=== PATIENT | female | born 1945 | race Caucasian/White ===

== ENCOUNTER 2016-04-19 20:53 | Inpatient (IN) | payer OTHER ==
[~2016-04-19] VITALS: Ht 162.6 cm; Wt 89.7 kg
[~2016-04-19 20:53] MED LIST: ACID CONTROL150 MG PO; ADULT LOW DOSE81 M1 PO; ADVAIR 100-501 EACH IH; ADVAIR 250/501 DISK IH; ALBUTEROL17 GM; ALBUTEROL17 GM IH; ALLOPURINOL100 MG PO; ASPIR 8181 M1 PO; ASPIRIN E.C.81 M1 PO; ASPIRIN EC325 MG PO; AVELOX400 MG PO; Advair 250/50 Diskus IH; Advair HFA 115/21 IH; Advair HFA 45/21 IH; Albuterol IH; BACTRIM,SEPT1 TABLET PO; BETHANECHOL CHL25 MG PO; CALCITRIOL0.25 MC1 PO; CALCITRIOL0.25 MCG PO; CALCITRIOL0.5 MCG PO; CALMOSEPTINE O120 GM TP; CELEXA20 MG PO; CELEXA40 MG PO; COLCHICINE,COL0.6 MG PO; COLCRYS0.6 MG PO; COMBIVENT INH14.7 GM IH; CRANBERRY500 M2 PO; CYCLOBENZAPRINE10 M1 PO; Ceftin PO; DIABETA,MICRON2.5 MG PO; DITROPAN XL5 MG PO; DITROPAN5 MG PO; DOXEPIN HCL10 MG PO; DOXEPIN HCL25 MG PO; DUONEB3 ML IH; Diabeta,Micronase PO; Ditropan PO; FLOMAX0.4 MG PO; FUROSEMIDE40 MG PO; Flexeril PO; GABAPENTIN100 MG PO; GENTAK3.5 GM BOTH EYES; GENTAMICIN SULFA5 ML BOTH EYES; GLIPIZIDE5 MG PO; GLUCOSE BITS1 GM PO; GLUCOSE PO; GLUCOSE TABLETS PO; GLUCOSE1 EACH PO; GLUCOTROL5 MG PO; GLYBURIDE2.5 MG PO; Glucotrol PO; HYDROCODON-ACE1 EAC5 PO; HYDROCODON-ACE1 EAC7 PO; HYDROCODONE-AP1 EAC8 PO; IRON325 MG PO; LASIX20 MG PO; LEVOTHROID,S0.075 MG PO; LEVOTHYROXINE75 MCG PO; LEXAPRO10 MG PO; LEXAPRO20 MG PO; LIDODERM 5% P1 PATCH PO; LIDODERM 5% P1 PATCH TD; LIDODERM700 MG TP; Lasix PO; Levothroid,Synthroid PO; Lovenox SC; MAG-AL PLUS SUS30 ML PO; METAMUCIL1 EACH PO; METHENAMINE MAND1 GM PO; NEURONTIN100 MG PO; NEXIUM20 MG PO; NEXIUM40 MG PO; NUVIGIL150 MG PO; NYSTATIN100000 UNI RIGHT NARE; OXYBUTYNIN CHLOR5 MG PO; PERCOCET 5/31 TABLET PO; PRAVACHOL80 MG PO; PRAVASTATIN SOD80 MG PO; PRILOSEC20 MG PO; Pepcid PO; Prilosec PO; Proventil,Ventolin H IH; Rocaltrol PO; SALINE NASAL SP45 ML BOTH NARES; SEROQUEL12.5 MG PO; SEROQUEL50 MG PO; SIMVASTATIN40 MG PO; SINEQUAN10 MG PO; SINEQUAN100 MG PO; SINEQUAN25 MG PO; TIROSINT75 MCG PO; TRAMADOL; TRAMADOL HCL50 MG PO; TYLENOL REGULA325 MG PO; ULTRAM50 MG PO; VENTOLIN HFA18 GM IH; VICODIN,LORT1 TABLET PO; VITAMIN D1000 INTUN PO; VITAMIN D31000 UNIT PO; VITAMIN D5000 INTUN PO; Vicodin,Lortab 5/500 PO; ZANTAC150 MG PO; ZEMPLAR1 MCG PO; ZESTRIL,PRINIVI10 M1 PO; ZYLOPRIM100 MG PO; Zyloprim PO; [UNRECOGNIZED DRUG - OTHER] PO; predniSONE PO
[2016-04-19 21:37] LABS: HEMATOCRIT 28.8 % (36.0-46.0); MCH 31.5 PG (29.0-34.0); MCHC 31.3 G/DL (30.0-36.0); MCV 100.7 FL (83-99); MEAN PLAT.VOLUME 9.8 uM^3 (9.5-12.4); PLATELET COUNT 183 K/uL (156-360); RBC DIS.WIDTH-CV 15.6 % (11.8-14.6); RBC DIS.WIDTH-SD 52.2 % (39-53); RED BLOOD COUNT 2.86 M/uL (3.80-5.20); WHITE BLOOD COUNT 10.7 K/uL (4.1-10.2)
[2016-04-19 21:44] LABS: CHLORIDE 110 mEq/L (99-109); POTASSIUM 4.6 mEq/L (3.7-5.4); SODIUM 141 mEq/L (136-147)
[2016-04-19 21:46] LABS: GLUCOSE 156 mg/dL (70-99)
[2016-04-19 21:48] LABS: ANION GAP 11 MEQ/L (2-14)
[2016-04-19 21:50] LABS: GFR ESTIMATE (CALCULATED) 8 mL/min/
[2016-04-19 21:51] LABS: UREA NITROGEN (BUN) 69 mg/dL (9-23)
[2016-04-19 21:58] LABS: TROP-I INTERPRETATION NEGATIVE; TROPONIN-I 0.02 ng/mL (0.0-0.30)
[2016-04-19 23:18] LABS: D-DIMER ELISA 0.67 mg/L FEU (< 0.57); INTER. NORMALIZED RATIO 1.1; PTT 26.1 (25-32)
[2016-04-20 00:11] LABS: INFLUENZA A VIRAL ANTIGEN NEGATIVE; INFLUENZA B VIRAL ANTIGEN NEGATIVE
[2016-04-20] MEDS ORDERED: GLIPIZIDE5 MG PO (00:55)
[2016-04-20] MEDS ORDERED: CALMOSEPTINE O120 GM TP (00:59)
[2016-04-20] MEDS ORDERED: FUROSEMIDE20 MG PO (01:05)
[2016-04-20] MEDS ORDERED: DUONEB 2.5-0.5 M3 ML AEROSOL (01:06)
[2016-04-20] MEDS ORDERED: TRADJENTA5 MG PO (01:06)
[2016-04-20] MEDS ORDERED: SENNA PLUS TAB1 EACH PO (01:07)
[2016-04-20] MEDS ORDERED: TUSSIN DM LIQU118 ML PO (01:08)
[2016-04-20 04:07] LABS: TROP-I INTERPRETATION NEGATIVE; TROPONIN-I 0.02 ng/mL (0.0-0.30)
[2016-04-20 09:52] LABS: POINT-OF-CARE METER ID UU13113702
[2016-04-20 10:21] LABS: TROP-I INTERPRETATION NEGATIVE; TROPONIN-I < 0.01 ng/mL (0.0-0.30)
[2016-04-20 14:20] VITALS: BP 80/60
[2016-04-20 15:48] LABS: IRON 44 MCG/DL (35-150)
[2016-04-20 16:32] LABS: POINT-OF-CARE METER ID UU13113698
[2016-04-20 19:20] VITALS: BP 105/57
[2016-04-20 20:53] LABS: POINT-OF-CARE METER ID UU14174216
[2016-04-21 00:20] VITALS: BP 97/52
[2016-04-21 04:02] VITALS: BP 96/50
[2016-04-21 06:58] LABS: HEMATOCRIT 25.2 % (36.0-46.0); MCH 31.7 PG (29.0-34.0); MCV 102.4 FL (83-99); MEAN PLAT.VOLUME 10.4 uM^3 (9.5-12.4); PLATELET COUNT 149 K/uL (156-360); RBC DIS.WIDTH-CV 16.3 % (11.8-14.6); RBC DIS.WIDTH-SD 58.8 % (39-53); RED BLOOD COUNT 2.46 M/uL (3.80-5.20); WHITE BLOOD COUNT 8.7 K/uL (4.1-10.2)
[2016-04-21 07:32] LABS: ANION GAP 10 MEQ/L (2-14); CHLORIDE 110 MEQ/L (99-109); GFR ESTIMATE (CALCULATED) 9 mL/min/; POTASSIUM 5.1 MEQ/L (3.7-5.4); SAMPLE HEMOLYSIS CHECK 0; SAMPLE ICTERIC CHECK 0; SAMPLE LIPEMIA CHECK 0; SODIUM 141 MEQ/L (136-147); UREA NITROGEN (BUN) 67 mg/dL (9-23)
[2016-04-21 07:40] VITALS: BP 109/56
[2016-04-21 07:40] LABS: GLUCOSE 79 mg/dL (70-99)
[2016-04-21 08:26] LABS: INTACT PARATHYROID HORMONE 94 pg/mL (10-69)
[2016-04-21 11:07] LABS: POINT-OF-CARE METER ID UU13113698
[2016-04-21 12:10] VITALS: BP 95/55
[2016-04-21 15:31] VITALS: BP 98/55
[2016-04-21 16:17] LABS: POINT-OF-CARE METER ID UU13113698
[2016-04-21 19:46] LABS: INFLUENZA A VIRAL ANTIGEN NEGATIVE; INFLUENZA B VIRAL ANTIGEN NEGATIVE
[2016-04-21 21:11] VITALS: BP 90/50
[2016-04-21 21:32] LABS: POINT-OF-CARE METER ID UU14174216
[2016-04-22] VITALS (8 sets, daily range): BP systolic 75–112; BP diastolic 48–65
[2016-04-22 05:08] LABS: HEMATOCRIT 25.3 % (36.0-46.0); MCH 30.9 PG (29.0-34.0); MCHC 30.4 G/DL (30.0-36.0); MCV 101.6 FL (83-99); MEAN PLAT.VOLUME 10.2 uM^3 (9.5-12.4); PLATELET COUNT 143 K/uL (156-360); RBC DIS.WIDTH-CV 16.2 % (11.8-14.6); RBC DIS.WIDTH-SD 58.6 % (39-53); RED BLOOD COUNT 2.49 M/uL (3.80-5.20); WHITE BLOOD COUNT 7.8 K/uL (4.1-10.2)
[2016-04-22 05:45] LABS: ANION GAP 11 MEQ/L (2-14); CHLORIDE 113 MEQ/L (99-109); GFR ESTIMATE (CALCULATED) 9 mL/min/; POTASSIUM 4.8 MEQ/L (3.7-5.4); SAMPLE HEMOLYSIS CHECK 0; SAMPLE ICTERIC CHECK 0; SAMPLE LIPEMIA CHECK 0; SODIUM 143 MEQ/L (136-147); UREA NITROGEN (BUN) 68 mg/dL (9-23)
[2016-04-22 05:46] LABS: GLUCOSE 113 mg/dL (70-99)
[2016-04-22 06:07] LABS: FERRITIN 59 NG/ML (10-291)
[2016-04-22 06:24] LABS: ABS NEUTROPHIL COUNT 4.98; ANISOCYTOSIS 2+; EOSINOPHIL ABS CT 0.23; HYPOCHROMASIA 1+; MACROCYTES 2+; MICROCYTOSIS 1+; PLAT.SUFFICIENCY ADEQUATE; POLYCHROMASIA RARE; TEAR DROP CELLS 1+
[2016-04-22 06:38] LABS: DELETE MACHINE DIFF? YES
[2016-04-22 08:22] LABS: POINT-OF-CARE METER ID UU13113698; POINT-OF-CARE USER ID ENVKC36
[2016-04-22 12:31] LABS: POINT-OF-CARE METER ID UU13113781; POINT-OF-CARE USER ID ENVKC36
[2016-04-23 00:35] VITALS: BP 98/50
[2016-04-23 04:24] LABS: HEMATOCRIT 26.4 % (36.0-46.0); MCH 31.1 PG (29.0-34.0); MCHC 30.3 G/DL (30.0-36.0); MCV 102.7 FL (83-99); MEAN PLAT.VOLUME 9.8 uM^3 (9.5-12.4); PLATELET COUNT 138 K/uL (156-360); RBC DIS.WIDTH-CV 16.3 % (11.8-14.6); RBC DIS.WIDTH-SD 57.4 % (39-53); RED BLOOD COUNT 2.57 M/uL (3.80-5.20); WHITE BLOOD COUNT 8.1 K/uL (4.1-10.2)
[2016-04-23 04:27] LABS: EOSINOPHIL (%) 4.8 % (0-5); EOSINOPHIL COUNT 0.4 K/uL (0-0.3); IMMATURE GRANULOCYTE (%) 1.9 % (0.0-0.7); IMMATURE GRANULOCYTE COUNT 1.5 K/uL; LYMPHOCYTE COUNT 1.3 K/uL (1.0-2.8); MONOCYTE (%) 7.3 % (3-12); MONOCYTE COUNT 0.6 K/uL (0-0.8); NEUTROPHIL COUNT 5.7 K/uL (1.8-6.4)
[2016-04-23 04:31] LABS: CHLORIDE 114 mEq/L (99-109); POTASSIUM 5.2 mEq/L (3.7-5.4); SODIUM 144 mEq/L (136-147)
[2016-04-23 04:33] LABS: GLUCOSE 144 mg/dL (70-99)
[2016-04-23 04:35] LABS: ANION GAP 12 MEQ/L (2-14)
[2016-04-23 04:37] LABS: GFR ESTIMATE (CALCULATED) 8 mL/min/
[2016-04-23 04:38] LABS: UREA NITROGEN (BUN) 71 mg/dL (9-23)
[2016-04-23 05:10] VITALS: BP 82/54
[2016-04-23 13:53] LABS: AHBS INDEX 0.28; ANTI-HEPATITIS B CORE (TOTAL) REACTIVE; HEPATITIS B SURFACE ANTIBODY Nonreactive; HPCA INDEX 0.23
[2016-04-23 14:00] VITALS: BP 87/59
[2016-04-23 14:24] LABS: HBSG INDEX 1308.33
[2016-04-23 15:36] LABS: HBCT INDEX 11.88
[2016-04-23 18:00] VITALS: BP 85/47
[2016-04-23 19:28] VITALS: BP 104/58
[2016-04-24 00:50] VITALS: BP 89/59
[2016-04-24 05:13] VITALS: BP 85/50
[2016-04-24 09:23] LABS: HEMATOCRIT 26.4 % (36.0-46.0); MCH 30.2 PG (29.0-34.0); MCHC 29.5 G/DL (30.0-36.0); MCV 102.3 FL (83-99); MEAN PLAT.VOLUME 10.3 uM^3 (9.5-12.4); PLATELET COUNT 134 K/uL (156-360); RBC DIS.WIDTH-CV 16.7 % (11.8-14.6); RBC DIS.WIDTH-SD 62.6 % (39-53); RED BLOOD COUNT 2.58 M/uL (3.80-5.20); WHITE BLOOD COUNT 6.5 K/uL (4.1-10.2)
[2016-04-24 09:47] LABS: ANION GAP 7 MEQ/L (2-14); CHLORIDE 110 MEQ/L (99-109); EOSINOPHIL (%) 5.1 % (0-5); EOSINOPHIL COUNT 0.3 K/uL (0-0.3); GFR ESTIMATE (CALCULATED) 12 mL/min/; GLUCOSE 189 mg/dL (70-99); IMMATURE GRANULOCYTE (%) 1.6 % (0.0-0.7); IMMATURE GRANULOCYTE COUNT 0.1 K/uL; MONOCYTE (%) 10.9 % (3-12); MONOCYTE COUNT 0.7 K/uL (0-0.8); NEUTROPHIL (%) 66.2 % (45-76); NEUTROPHIL COUNT 4.3 K/uL (1.8-6.4); POTASSIUM 4.2 MEQ/L (3.7-5.4); SAMPLE HEMOLYSIS CHECK 0; SAMPLE ICTERIC CHECK 0; SAMPLE LIPEMIA CHECK 0; SODIUM 141 MEQ/L (136-147); UREA NITROGEN (BUN) 50 mg/dL (9-23)
[2016-04-24 13:00] VITALS: BP 106/54
[2016-04-24 14:01] LABS: POINT-OF-CARE METER ID UU13113781
[2016-04-24 14:01] LABS: ANTI-HEPATITIS B CORE (IGM) Nonreactive; HBC IgM INDEX 0.48
[2016-04-24 16:09] LABS: ADD MIUA? YES; BILIRUBIN NEGATIVE; BLOOD MODERATE; COLOR YELLOW ((YELLOW)); GLUCOSE (STRIP) NEGATIVE; KETONES NEGATIVE; LEUKOCYTES LARGE; NITRITE NEGATIVE; PROTEIN (STRIP) 100; SPECIFIC GRAVITY 1.006 (1.000-1.030); UROBILINOGEN 0.2 MG/DL (0.2-1.0)
[2016-04-24 16:37] LABS: UCUL ADDED? YES; WHITE BLOOD CELLS TNTC /HPF (0-5)
[2016-04-24 16:49] LABS: D-DIMER ELISA 1.03 mg/L FEU (< 0.57); FIBRINOGEN 367 MG/DL (160-450); INTER. NORMALIZED RATIO 1.1; PROTHROMBIN TIME 11.4 (9.2-11.2); PTT 30.9 (25-32)
[2016-04-24 17:32] LABS: ALKALINE PHOSPHATASE 95 IU/L (3-129); DIRECT BILIRUBIN 0.1 mg/dL (0.0-0.3); TOTAL BILIRUBIN 0.4 MG/DL (0.0-1.0)
[2016-04-24 17:57] VITALS: BP 126/56
[2016-04-24 19:39] VITALS: BP 111/56
[2016-04-24 21:11] LABS: POINT-OF-CARE METER ID UU13113781
[2016-04-24 23:43] VITALS: BP 90/54
[2016-04-25] VITALS (8 sets, daily range): BP systolic 95–130; BP diastolic 52–63
[2016-04-25 08:35] LABS: HEMATOCRIT 26.3 % (36.0-46.0); MCH 30.8 PG (29.0-34.0); MCHC 29.7 G/DL (30.0-36.0); MEAN PLAT.VOLUME 9.9 uM^3 (9.5-12.4); PLATELET COUNT 120 K/uL (156-360); RBC DIS.WIDTH-CV 17.1 % (11.8-14.6); RBC DIS.WIDTH-SD 65.3 % (39-53); RED BLOOD COUNT 2.53 M/uL (3.80-5.20); WHITE BLOOD COUNT 6.4 K/uL (4.1-10.2)
[2016-04-25 08:47] LABS: EOSINOPHIL (%) 5.3 % (0-5); EOSINOPHIL COUNT 0.3 K/uL (0-0.3); IMMATURE GRANULOCYTE (%) 1.7 % (0.0-0.7); IMMATURE GRANULOCYTE COUNT 0.1 K/uL; MONOCYTE (%) 9.6 % (3-12); MONOCYTE COUNT 0.6 K/uL (0-0.8); NEUTROPHIL COUNT 4.3 K/uL (1.8-6.4)
[2016-04-25 08:52] LABS: ANION GAP 6 MEQ/L (2-14); CHLORIDE 110 MEQ/L (99-109); GFR ESTIMATE (CALCULATED) 17 mL/min/; GLUCOSE 262 mg/dL (70-99); POTASSIUM 4.1 MEQ/L (3.7-5.4); SAMPLE HEMOLYSIS CHECK 0; SAMPLE ICTERIC CHECK 0; SAMPLE LIPEMIA CHECK 0; SODIUM 142 MEQ/L (136-147); UREA NITROGEN (BUN) 35 mg/dL (9-23)
[2016-04-25 21:24] LABS: POINT-OF-CARE METER ID UU13113698
[2016-04-26 04:48] LABS: HEMATOCRIT 28.1 % (36.0-46.0); MCH 31.2 PG (29.0-34.0); MCHC 29.5 G/DL (30.0-36.0); MCV 105.6 FL (83-99); MEAN PLAT.VOLUME 10.4 uM^3 (9.5-12.4); PLATELET COUNT 121 K/uL (156-360); RBC DIS.WIDTH-CV 16.2 % (11.8-14.6); RBC DIS.WIDTH-SD 60.8 % (39-53); RED BLOOD COUNT 2.66 M/uL (3.80-5.20); WHITE BLOOD COUNT 7.1 K/uL (4.1-10.2)
[2016-04-26 04:54] LABS: EOSINOPHIL (%) 6.4 % (0-5); EOSINOPHIL COUNT 0.5 K/uL (0-0.3); IMMATURE GRANULOCYTE (%) 1.7 % (0.0-0.7); IMMATURE GRANULOCYTE COUNT 1.2 K/uL; LYMPHOCYTE COUNT 1.2 K/uL (1.0-2.8); MONOCYTE (%) 7.5 % (3-12); MONOCYTE COUNT 0.5 K/uL (0-0.8); NEUTROPHIL (%) 67.1 % (45-76); NEUTROPHIL COUNT 4.7 K/uL (1.8-6.4)
[2016-04-26 04:59] LABS: CHLORIDE 109 mEq/L (99-109); POTASSIUM 4.1 mEq/L (3.7-5.4); SODIUM 142 mEq/L (136-147)
[2016-04-26 05:01] LABS: GLUCOSE 140 mg/dL (70-99)
[2016-04-26 05:03] LABS: ANION GAP 7 MEQ/L (2-14)
[2016-04-26 05:05] LABS: GFR ESTIMATE (CALCULATED) 20 mL/min/
[2016-04-26 05:06] LABS: UREA NITROGEN (BUN) 22 mg/dL (9-23)
[2016-04-26 05:24] VITALS: BP 99/69
[2016-04-26 07:29] VITALS: BP 102/64
[2016-04-26 12:39] VITALS: BP 94/51
[2016-04-26 15:32] VITALS: BP 90/51
[2016-04-26 20:13] LABS: HBV DNA IU/mL >170.0E6 IU/mL (<20)
[2016-04-26 20:18] VITALS: BP 110/58
[2016-04-27] VITALS (7 sets, daily range): BP systolic 90–106; BP diastolic 52–61
[2016-04-27 05:54] LABS: HEMATOCRIT 28.1 % (36.0-46.0); MCH 29.9 PG (29.0-34.0); MCHC 28.8 G/DL (30.0-36.0); MCV 103.7 FL (83-99); MEAN PLAT.VOLUME 10.9 uM^3 (9.5-12.4); PLATELET COUNT 145 K/uL (156-360); RBC DIS.WIDTH-CV 16.2 % (11.8-14.6); RBC DIS.WIDTH-SD 61.7 % (39-53); RED BLOOD COUNT 2.71 M/uL (3.80-5.20); WHITE BLOOD COUNT 6.6 K/uL (4.1-10.2)
[2016-04-27 06:12] LABS: ANION GAP 6 MEQ/L (2-14); CHLORIDE 112 MEQ/L (99-109); GFR ESTIMATE (CALCULATED) 15 mL/min/; GLUCOSE 147 mg/dL (70-99); POTASSIUM 4.2 MEQ/L (3.7-5.4); SAMPLE HEMOLYSIS CHECK 0; SAMPLE ICTERIC CHECK 0; SAMPLE LIPEMIA CHECK 0; SODIUM 143 MEQ/L (136-147); UREA NITROGEN (BUN) 29 mg/dL (9-23)
[2016-04-27 06:16] LABS: ANION GAP 7 MEQ/L (2-14); CHLORIDE 110 MEQ/L (99-109); GLUCOSE 146 mg/dL (70-99); POTASSIUM 4.2 MEQ/L (3.7-5.4); SAMPLE HEMOLYSIS CHECK 0; SAMPLE ICTERIC CHECK 0; SAMPLE LIPEMIA CHECK 0; SODIUM 143 MEQ/L (136-147); UREA NITROGEN (BUN) 30 mg/dL (9-23)
[2016-04-27 06:17] LABS: GFR ESTIMATE (CALCULATED) 15 mL/min/
[2016-04-27 06:28] LABS: EOSINOPHIL (%) 5.5 % (0-5); EOSINOPHIL COUNT 0.4 K/uL (0-0.3); IMMATURE GRANULOCYTE COUNT 0.1 K/uL; LYMPHOCYTE COUNT 1.1 K/uL (1.0-2.8); MONOCYTE (%) 8.8 % (3-12); MONOCYTE COUNT 0.6 K/uL (0-0.8); NEUTROPHIL (%) 67.3 % (45-76); NEUTROPHIL COUNT 4.4 K/uL (1.8-6.4)
[2016-04-27 07:40] LABS: POINT-OF-CARE METER ID UU14174216
[2016-04-27 11:16] LABS: POINT-OF-CARE METER ID UU14174216
[2016-04-27 16:28] LABS: POINT-OF-CARE METER ID UU14174216
[2016-04-27 17:52] LABS: POINT-OF-CARE METER ID UU14174216
[2016-04-27 21:01] LABS: POINT-OF-CARE METER ID UU14174216
[2016-04-28 03:10] VITALS: BP 103/52
[2016-04-28 05:35] LABS: HEMATOCRIT 29.5 % (36.0-46.0); MCH 31.4 PG (29.0-34.0); MCHC 29.5 G/DL (30.0-36.0); MCV 106.5 FL (83-99); MEAN PLAT.VOLUME 10.7 uM^3 (9.5-12.4); PLATELET COUNT 139 K/uL (156-360); RBC DIS.WIDTH-CV 16.3 % (11.8-14.6); RBC DIS.WIDTH-SD 62.5 % (39-53); RED BLOOD COUNT 2.77 M/uL (3.80-5.20); WHITE BLOOD COUNT 7.8 K/uL (4.1-10.2)
[2016-04-28 05:58] LABS: ANION GAP 8 MEQ/L (2-14); CHLORIDE 109 MEQ/L (99-109); GFR ESTIMATE (CALCULATED) 13 mL/min/; GLUCOSE 134 mg/dL (70-99); POTASSIUM 4.6 MEQ/L (3.7-5.4); SAMPLE HEMOLYSIS CHECK 0; SAMPLE ICTERIC CHECK 0; SAMPLE LIPEMIA CHECK 0; SODIUM 142 MEQ/L (136-147); UREA NITROGEN (BUN) 36 mg/dL (9-23)
[2016-04-28 06:26] LABS: EOSINOPHIL (%) 4.8 % (0-5); EOSINOPHIL COUNT 0.4 K/uL (0-0.3); IMMATURE GRANULOCYTE (%) 3.6 % (0.0-0.7); IMMATURE GRANULOCYTE COUNT 0.3 K/uL; LYMPHOCYTE COUNT 1.3 K/uL (1.0-2.8); MONOCYTE (%) 8.5 % (3-12); MONOCYTE COUNT 0.7 K/uL (0-0.8); NEUTROPHIL COUNT 5.1 K/uL (1.8-6.4)
[2016-04-28 07:23] LABS: POINT-OF-CARE METER ID UU13113698
[2016-04-28 07:39] LABS: HEMATOLOGY COMMENT 1 SMEAR COMPATIBLE; PLAT.SUFFICIENCY DECREASED; USER ID TLW
[2016-04-28 07:47] VITALS: BP 108/59
[2016-04-28 10:42] LABS: POINT-OF-CARE METER ID UU14174216
[2016-04-28 10:51] LABS: HBV DNA Copies/mL >8.23 (<1.30)
[2016-04-28 12:09] VITALS: BP 101/55
[2016-04-28] MEDS ORDERED: CEFTIN250 MG PO (14:25)
[2016-04-28] MEDS ORDERED: FUROSEMIDE40 MG PO (14:25)
== END 2016-04-28 16:05 | disposition home or self-care (01) | DRG 683 ==
LOC: EME 20:53 → EDOF 04-20 00:06 → 4EAST 04-20 10:21 → EDOF 04-20 10:21 → 4EAST 04-20 14:37
PROVIDERS: Emergency Medicine; Internal Medicine; Internal Medicine Nephrology; Physician Assistant
PROC: 5A1D60Z (ICD-10-PCS; principal; 2016-04-23)
DX: N17.9 Acute kidney failure, unspecified (principal); B19.10 Unspecified viral hepatitis B without hepatic coma; N39.0 Urinary tract infection, site not specified; I12.0 Hypertensive chronic kidney disease with stage 5 chronic kidney disease or end stage renal disease; I27.2 Other secondary pulmonary hypertension; J11.1 Influenza due to unidentified influenza virus with other respiratory manifestations; F41.9 Anxiety disorder, unspecified; E11.22 Type 2 diabetes mellitus with diabetic chronic kidney disease; F32.9 Major depressive disorder, single episode, unspecified; R32 Unspecified urinary incontinence; E78.5 Hyperlipidemia, unspecified; D63.1 Anemia in chronic kidney disease; D50.9 Iron deficiency anemia, unspecified; K21.9 Gastro-esophageal reflux disease without esophagitis; G89.29 Other chronic pain; J44.9 Chronic obstructive pulmonary disease, unspecified; R07.9 Chest pain, unspecified; E55.9 Vitamin D deficiency, unspecified; M10.9 Gout, unspecified; I77.0 Arteriovenous fistula, acquired; N18.5 Chronic kidney disease, stage 5; E21.3 Hyperparathyroidism, unspecified; I95.9 Hypotension, unspecified; Z88.2 Allergy status to sulfonamides; Z87.891 Personal history of nicotine dependence; Z79.82 Long term (current) use of aspirin
CPT/HCPCS: 71020; 78582; 80048; 80048 91; 80069; 80076; 81003; 82728; 82948; 83540; 83605; 83690; 83880; 83970; 84443; 84466; 84484; 85025; 85027; 85379; 85384; 85610; 85730; 86704; 86705; 86706; 86803; 87077; 87086; 87186; 87340; 87502; 87517 90; 93005; 94640; 94640 76; 94760; 99202; 99281; 99285; A9540; A9567; J0696; J0881; J1644; J1756; J1815; J2270; J2405; J7030; J7050

== ENCOUNTER 2016-06-29 07:51 | Inpatient (IN) | payer OTHER ==
[~2016-06-29] VITALS: Ht 157.5 cm; Wt 84.0 kg
[~2016-06-29 07:51] MED LIST changes: +CEFTIN250 MG PO; +DUONEB 2.5-0.5 M3 ML AEROSOL; +FUROSEMIDE20 MG PO; +SENNA PLUS TAB1 EACH PO; +TRADJENTA5 MG PO; +TUSSIN DM LIQU118 ML PO
[2016-06-29 08:55] LABS: EOSINOPHIL (%) 5.8 % (0-5); EOSINOPHIL COUNT 0.4 K/uL (0-0.3); HEMATOCRIT 32.7 % (36.0-46.0); IMMATURE GRANULOCYTE (%) 1.7 % (0.0-0.7); IMMATURE GRANULOCYTE COUNT 0.1 K/uL; LYMPHOCYTE COUNT 1.4 K/uL (1.0-2.8); MCH 32.5 PG (29.0-34.0); MCHC 30.3 G/DL (30.0-36.0); MCV 107.2 FL (83-99); MONOCYTE (%) 10.2 % (3-12); MONOCYTE COUNT 0.7 K/uL (0-0.8); NEUTROPHIL (%) 61.2 % (45-76); PLATELET COUNT 135 K/uL (156-360); RBC DIS.WIDTH-CV 14.6 % (11.8-14.6); RBC DIS.WIDTH-SD 56.3 % (39-53); RED BLOOD COUNT 3.05 M/uL (3.80-5.20); WHITE BLOOD COUNT 6.6 K/uL (4.1-10.2)
[2016-06-29 09:04] LABS: CHLORIDE 105 mEq/L (99-109); POTASSIUM 3.9 mEq/L (3.7-5.4); SODIUM 142 mEq/L (136-147)
[2016-06-29 09:07] LABS: GLUCOSE 109 mg/dL (70-99)
[2016-06-29 09:08] LABS: ANION GAP 12 MEQ/L (2-14)
[2016-06-29 09:09] LABS: TOTAL BILIRUBIN 0.5 mg/dL (0.0-1.0)
[2016-06-29 09:10] LABS: ALKALINE PHOSPHATASE 104 IU/L (3-129); GFR ESTIMATE (CALCULATED) 11 mL/min/
[2016-06-29 09:11] LABS: UREA NITROGEN (BUN) 32 mg/dL (9-23)
[2016-06-29 09:16] LABS: TROP-I INTERPRETATION NEGATIVE; TROPONIN-I < 0.01 ng/mL (0.0-0.30)
[2016-06-29 09:19] LABS: INTER. NORMALIZED RATIO 1.1; PROTHROMBIN TIME 11.1 (9.2-11.2); PTT 27.8 (25-32)
[2016-06-29 09:55] LABS: ADD MIUA? YES; BILIRUBIN NEGATIVE; BLOOD SMALL; COLOR YELLOW ((YELLOW)); GLUCOSE (STRIP) NEGATIVE; KETONES NEGATIVE; LEUKOCYTES LARGE; NITRITE NEGATIVE; PROTEIN (STRIP) 100; SPECIFIC GRAVITY 1.008 (1.000-1.030); UROBILINOGEN 0.2 MG/DL (0.2-1.0)
[2016-06-29 10:13] LABS: BACTERIA NONE SEEN /HPF; EPITHELIAL CELLS RARE /HPF; MUCUS NONE SEEN /LPF; RED BLOOD CELLS TNTC /HPF (0-5); UCUL ADDED? YES; WHITE BLOOD CELLS TNTC /HPF (0-5); WHITE BLOOD CELLS CLUMP MANY /HPF (0-5)
[2016-06-29] MEDS ORDERED: NUVIGIL250 MG PO (12:31)
[2016-06-29] MEDS ORDERED: FUROSEMIDE40 MG PO (12:34)
[2016-06-29] MEDS ORDERED: SIMVASTATIN20 MG PO (12:39)
[2016-06-29] MEDS ORDERED: MIDODRINE HCL5 MG PO (12:40)
[2016-06-29 14:18] VITALS: BP 88/51
[2016-06-29 14:56] VITALS: BP 88/51
[2016-06-29 16:36] VITALS: BP 90/50; BP 90/58
[2016-06-29 18:55] VITALS: BP 104/53
[2016-06-29 23:04] VITALS: BP 96/51
[2016-06-29 23:45] VITALS: BP 104/60
[2016-06-30 03:09] VITALS: BP 114/62
[2016-06-30 06:51] LABS: HEMATOCRIT 33.8 % (36.0-46.0); MCH 31.7 PG (29.0-34.0); MCHC 29.3 G/DL (30.0-36.0); MCV 108.3 FL (83-99); MEAN PLAT.VOLUME 9.9 uM^3 (9.5-12.4); PLATELET COUNT 135 K/uL (156-360); RBC DIS.WIDTH-CV 14.7 % (11.8-14.6); RBC DIS.WIDTH-SD 58.4 % (39-53); RED BLOOD COUNT 3.12 M/uL (3.80-5.20); WHITE BLOOD COUNT 5.9 K/uL (4.1-10.2)
[2016-06-30 07:00] VITALS: BP 109/60
[2016-06-30 07:17] LABS: ANION GAP 9 MEQ/L (2-14); CHLORIDE 109 MEQ/L (99-109); GFR ESTIMATE (CALCULATED) 11 mL/min/; GLUCOSE 117 mg/dL (70-99); POTASSIUM 4.1 MEQ/L (3.7-5.4); SAMPLE HEMOLYSIS CHECK 0; SAMPLE ICTERIC CHECK 0; SAMPLE LIPEMIA CHECK 0; SODIUM 142 MEQ/L (136-147); UREA NITROGEN (BUN) 35 mg/dL (9-23)
[2016-06-30 11:15] VITALS: BP 93/65
[2016-06-30 18:17] VITALS: BP 86/48
[2016-06-30 20:34] VITALS: BP 117/49
[2016-06-30 21:18] LABS: POINT-OF-CARE METER ID UU14162508
[2016-07-01] VITALS (7 sets, daily range): BP systolic 92–120; BP diastolic 53–76
[2016-07-01 07:01] LABS: HEMATOCRIT 33.1 % (36.0-46.0); MCH 32.1 PG (29.0-34.0); MCHC 29.9 G/DL (30.0-36.0); MCV 107.5 FL (83-99); MEAN PLAT.VOLUME 9.8 uM^3 (9.5-12.4); PLATELET COUNT 123 K/uL (156-360); RBC DIS.WIDTH-CV 14.7 % (11.8-14.6); RBC DIS.WIDTH-SD 57.3 % (39-53); RED BLOOD COUNT 3.08 M/uL (3.80-5.20); WHITE BLOOD COUNT 5.6 K/uL (4.1-10.2)
[2016-07-01 07:12] LABS: Estimated Average Glucose 114 mg/dL (70-123); HEMOGLOBIN A1c (GLYCOHEMOGLOB) 5.6 % HGB (Below 5.7)
[2016-07-01 07:37] LABS: ANION GAP 10 MEQ/L (2-14); CHLORIDE 103 MEQ/L (99-109); GFR ESTIMATE (CALCULATED) 15 mL/min/; GLUCOSE 124 mg/dL (70-99); SAMPLE HEMOLYSIS CHECK 0; SAMPLE ICTERIC CHECK 0; SAMPLE LIPEMIA CHECK 0; SODIUM 142 MEQ/L (136-147); UREA NITROGEN (BUN) 21 mg/dL (9-23)
[2016-07-01 11:37] LABS: POINT-OF-CARE METER ID UU14162508
[2016-07-01 17:10] LABS: POINT-OF-CARE METER ID UU14162508
[2016-07-02 04:05] VITALS: BP 111/62
[2016-07-02 06:09] LABS: BASOPHIL COUNT 0.1 K/uL (0-0.1); EOSINOPHIL (%) 6.9 % (0-5); EOSINOPHIL COUNT 0.4 K/uL (0-0.3); HEMATOCRIT 34.3 % (36.0-46.0); IMMATURE GRANULOCYTE COUNT 0.3 K/uL; INSTRUMENT ABS NEUTROPHIL CT 3.5 K/uL; LYMPHOCYTE COUNT 1.4 K/uL (1.0-2.8); MCH 32.1 PG (29.0-34.0); MCHC 29.4 G/DL (30.0-36.0); MCV 108.9 FL (83-99); MEAN PLAT.VOLUME 9.3 uM^3 (9.5-12.4); MONOCYTE (%) 9.6 % (3-12); MONOCYTE COUNT 0.6 K/uL (0-0.8); NEUTROPHIL (%) 56.5 % (45-76); NEUTROPHIL COUNT 3.5 K/uL (1.8-6.4); PLATELET COUNT 117 K/uL (156-360); RBC DIS.WIDTH-CV 14.6 % (11.8-14.6); RBC DIS.WIDTH-SD 58.9 % (39-53); RED BLOOD COUNT 3.15 M/uL (3.80-5.20); WHITE BLOOD COUNT 6.3 K/uL (4.1-10.2)
[2016-07-02 06:42] LABS: ANION GAP 10 MEQ/L (2-14); CHLORIDE 107 MEQ/L (99-109); GFR ESTIMATE (CALCULATED) 11 mL/min/; GLUCOSE 162 mg/dL (70-99); POTASSIUM 4.3 MEQ/L (3.7-5.4); SAMPLE HEMOLYSIS CHECK 0; SAMPLE ICTERIC CHECK 0; SAMPLE LIPEMIA CHECK 0; SODIUM 142 MEQ/L (136-147); UREA NITROGEN (BUN) 29 mg/dL (9-23)
[2016-07-02 06:55] VITALS: BP 106/57
[2016-07-02 12:06] VITALS: BP 170/80
[2016-07-02 13:04] LABS: POINT-OF-CARE METER ID UU14162508
[2016-07-02 18:14] LABS: POINT-OF-CARE METER ID UU14162508
[2016-07-02 18:42] VITALS: BP 122/56
[2016-07-02 19:32] VITALS: BP 119/58
[2016-07-02 23:27] VITALS: BP 123/62
[2016-07-03] VITALS (9 sets, daily range): BP systolic 72–115; BP diastolic 48–69
[2016-07-03 16:50] LABS: POINT-OF-CARE METER ID UU14162508
[2016-07-04 00:36] VITALS: BP 98/52
[2016-07-04 04:41] VITALS: BP 111/56
[2016-07-04 06:43] LABS: POINT-OF-CARE METER ID UU14162508
[2016-07-04 08:22] LABS: POINT-OF-CARE METER ID UU14162508
[2016-07-04 08:47] LABS: EOSINOPHIL (%) 5.4 % (0-5); EOSINOPHIL COUNT 0.4 K/uL (0-0.3); HEMATOCRIT 31.4 % (36.0-46.0); IMMATURE GRANULOCYTE (%) 3.8 % (0.0-0.7); IMMATURE GRANULOCYTE COUNT 0.3 K/uL; INSTRUMENT ABS NEUTROPHIL CT 4.5 K/uL; LYMPHOCYTE COUNT 1.3 K/uL (1.0-2.8); MCH 32.2 PG (29.0-34.0); MCHC 29.6 G/DL (30.0-36.0); MCV 108.7 FL (83-99); MEAN PLAT.VOLUME 10.7 uM^3 (9.5-12.4); MONOCYTE COUNT 0.6 K/uL (0-0.8); NEUTROPHIL (%) 64.1 % (45-76); NEUTROPHIL COUNT 4.5 K/uL (1.8-6.4); PLATELET COUNT 115 K/uL (156-360); RBC DIS.WIDTH-SD 59.2 % (39-53); RED BLOOD COUNT 2.89 M/uL (3.80-5.20)
[2016-07-04 09:03] LABS: ANION GAP 10 MEQ/L (2-14); CHLORIDE 103 MEQ/L (99-109); GFR ESTIMATE (CALCULATED) 11 mL/min/; GLUCOSE 341 mg/dL (70-99); SAMPLE HEMOLYSIS CHECK 0; SAMPLE ICTERIC CHECK 0; SAMPLE LIPEMIA CHECK 0; SODIUM 138 MEQ/L (136-147); UREA NITROGEN (BUN) 33 mg/dL (9-23)
[2016-07-04 12:25] VITALS: BP 89/50
[2016-07-04 12:52] LABS: POINT-OF-CARE METER ID UU14162508
[2016-07-04 15:00] VITALS: BP 96/55
[2016-07-04 16:06] LABS: POINT-OF-CARE METER ID UU14162508
[2016-07-04 19:15] VITALS: BP 87/51
[2016-07-04 22:53] LABS: POINT-OF-CARE METER ID UU14162508
[2016-07-04 23:49] VITALS: BP 91/52
[2016-07-05 03:57] VITALS: BP 86/47
[2016-07-05 03:59] VITALS: BP 90/53
[2016-07-05 04:00] VITALS: BP 88/50; BP 91/77
[2016-07-05 06:56] LABS: POINT-OF-CARE METER ID UU14162508
[2016-07-05 07:30] VITALS: BP 95/55
[2016-07-05] MEDS ORDERED: GLUCOTROL XL2.5 MG PO (11:20)
[2016-07-05 12:14] VITALS: BP 99/57
[2016-07-05 16:04] VITALS: BP 104/63
[2016-07-05 16:17] LABS: POINT-OF-CARE METER ID UU14162508
== END 2016-07-05 16:51 | disposition home or self-care (01) | DRG 312 ==
LOC: EME 07:51 → EDOF 11:43 → 2EAST 11:43
PROVIDERS: Emergency Medicine; Hospitalist; Internal Medicine; Internal Medicine Nephrology; Nurse Practitioner Family
DX: I95.3 Hypotension of hemodialysis (principal); N30.00 Acute cystitis without hematuria; R55 Syncope and collapse; I12.0 Hypertensive chronic kidney disease with stage 5 chronic kidney disease or end stage renal disease; N18.5 Chronic kidney disease, stage 5; Z99.2 Dependence on renal dialysis; R60.0 Localized edema; F33.0 Major depressive disorder, recurrent, mild; E03.9 Hypothyroidism, unspecified; D63.1 Anemia in chronic kidney disease; K21.9 Gastro-esophageal reflux disease without esophagitis; Z87.891 Personal history of nicotine dependence; E55.9 Vitamin D deficiency, unspecified; I87.2 Venous insufficiency (chronic) (peripheral); B18.1 Chronic viral hepatitis B without delta-agent; R01.1 Cardiac murmur, unspecified; I70.0 Atherosclerosis of aorta; E11.21 Type 2 diabetes mellitus with diabetic nephropathy; N25.81 Secondary hyperparathyroidism of renal origin; M10.9 Gout, unspecified; E66.9 Obesity, unspecified; Z68.33 Body mass index [BMI] 33.0-33.9, adult; E78.5 Hyperlipidemia, unspecified; I27.2 Other secondary pulmonary hypertension; I25.10 Atherosclerotic heart disease of native coronary artery without angina pectoris; R94.31 Abnormal electrocardiogram [ECG] [EKG]; L03.116 Cellulitis of left lower limb
CPT/HCPCS: 71010; 80048; 80053; 81003; 82607; 82948; 83036; 83605; 84484; 85025; 85027; 85610; 85730; 87040; 87086; 93005; 93306; 93971; 94640; 94640 76; 97530 GP; 99281; 99285; J0696; J0881; J1270; J1644; J1756; J1815; J7030; J7050

== ENCOUNTER 2016-07-23 12:50 | Observation (INO) | payer OTHER ==
[~2016-07-23] VITALS: Ht 162.6 cm; Wt 87.0 kg
[~2016-07-23 12:50] MED LIST changes: +GLUCOTROL XL2.5 MG PO; +MIDODRINE HCL5 MG PO; +NUVIGIL250 MG PO; +SIMVASTATIN20 MG PO
[2016-07-23 13:23] LABS: HEMATOCRIT 27.7 % (36.0-46.0); MCH 32.9 PG (29.0-34.0); MCHC 30.3 G/DL (30.0-36.0); MCV 108.6 FL (83-99); MEAN PLAT.VOLUME 9.7 uM^3 (9.5-12.4); PLATELET COUNT 109 K/uL (156-360); RBC DIS.WIDTH-CV 13.9 % (11.8-14.6); RBC DIS.WIDTH-SD 55.5 % (39-53); RED BLOOD COUNT 2.55 M/uL (3.80-5.20)
[2016-07-23 13:26] LABS: WHITE BLOOD COUNT 4.5 K/uL (4.1-10.2)
[2016-07-23 13:36] LABS: CHLORIDE 114 mEq/L (99-109); POTASSIUM 2.5 mEq/L (3.7-5.4); SODIUM 144 mEq/L (136-147)
[2016-07-23 13:38] LABS: GLUCOSE 124 mg/dL (70-99)
[2016-07-23 13:39] LABS: ANION GAP 5 MEQ/L (2-14)
[2016-07-23 13:41] LABS: GFR ESTIMATE (CALCULATED) 36 mL/min/
[2016-07-23 13:42] LABS: UREA NITROGEN (BUN) 10 mg/dL (9-23)
[2016-07-23 13:48] LABS: TROP-I INTERPRETATION NEGATIVE; TROPONIN-I < 0.01 ng/mL (0.0-0.30)
[2016-07-23] MEDS ORDERED: SYNTHROID75 MCG PO (16:29)
[2016-07-23] MEDS ORDERED: GLIPIZIDE ER2.5 MG PO (16:29)
[2016-07-23] MEDS ORDERED: CALMOSEPTINE O120 GM TP (16:32)
[2016-07-23] MEDS ORDERED: DUONEB 2.5-0.5 M3 ML AEROSOL (16:34)
[2016-07-23 20:32] LABS: CHLORIDE 106 mEq/L (99-109); SODIUM 140 mEq/L (136-147)
[2016-07-23 20:33] LABS: POTASSIUM 3.7 mEq/L (3.7-5.4)
[2016-07-23 20:34] LABS: GLUCOSE 112 mg/dL (70-99)
[2016-07-23 20:36] LABS: ANION GAP 7 MEQ/L (2-14)
[2016-07-23 20:38] LABS: GFR ESTIMATE (CALCULATED) 19 mL/min/
[2016-07-23 20:39] LABS: UREA NITROGEN (BUN) 14 mg/dL (9-23)
[2016-07-23 22:22] LABS: TROP-I INTERPRETATION NEGATIVE; TROPONIN-I < 0.01 ng/mL (0.0-0.30)
[2016-07-23 23:15] VITALS: BP 98/48
[2016-07-24 04:19] VITALS: BP 91/49
[2016-07-24 05:03] LABS: METH RESISTANT S AUREUS PCR POSITIVE (NEGATIVE)
[2016-07-24 05:13] LABS: PROBE CHECK PASS
[2016-07-24 07:36] VITALS: BP 97/58
[2016-07-24 08:23] LABS: TROP-I INTERPRETATION NEGATIVE; TROPONIN-I < 0.01 ng/mL (0.0-0.30)
[2016-07-24 12:35] LABS: TROP-I INTERPRETATION NEGATIVE; TROPONIN-I < 0.01 ng/mL (0.0-0.30)
[2016-07-24 16:17] VITALS: BP 76/46
[2016-07-24 16:48] LABS: POINT-OF-CARE METER ID UU13113781
[2016-07-24 17:33] VITALS: BP 84/58
[2016-07-24 19:17] VITALS: BP 80/50
[2016-07-24 23:03] VITALS: BP 94/63
[2016-07-25 04:28] VITALS: BP 101/59
[2016-07-25 07:27] VITALS: BP 92/51
[2016-07-25 11:49] VITALS: BP 127/59
[2016-07-25 13:58] VITALS: BP 97/63
[2016-07-25] MEDS ORDERED: MIDODRINE HCL5 MG PO (15:48)
[2016-07-25 18:23] LABS: HEMATOCRIT 34.2 % (36.0-46.0); MCH 32.9 PG (29.0-34.0); MCHC 30.1 G/DL (30.0-36.0); MCV 109.3 FL (83-99); PLATELET COUNT 134 K/uL (156-360); RBC DIS.WIDTH-SD 56.5 % (39-53); WHITE BLOOD COUNT 5.8 K/uL (4.1-10.2)
[2016-07-25 18:38] LABS: RED BLOOD COUNT 3.13 M/uL (3.80-5.20)
[2016-07-25 18:40] LABS: ANION GAP 10 MEQ/L (2-14); CHLORIDE 106 MEQ/L (99-109); GFR ESTIMATE (CALCULATED) 11 mL/min/; GLUCOSE 135 mg/dL (70-99); POTASSIUM 3.9 MEQ/L (3.7-5.4); SAMPLE HEMOLYSIS CHECK 0; SAMPLE ICTERIC CHECK 0; SAMPLE LIPEMIA CHECK 0; SODIUM 140 MEQ/L (136-147)
[2016-07-25 18:47] LABS: UREA NITROGEN (BUN) 28 mg/dL (9-23)
[2016-07-25 21:36] LABS: POINT-OF-CARE USER ID ENVKC36
[2016-07-25 22:31] VITALS: BP 100/49
== END 2016-07-26 00:46 | disposition home or self-care (01) ==
LOC: EME 12:50 → EDOF 21:07 → 4EAST 21:07
PROVIDERS: Emergency Medicine; Internal Medicine
PROC: 5A1D00Z (ICD-10-PCS; principal; 2016-07-25)
DX: R07.89 Other chest pain (principal); I95.89 Other hypotension; R00.0 Tachycardia, unspecified; I13.2 Hypertensive heart and chronic kidney disease with heart failure and with stage 5 chronic kidney disease, or end stage renal disease; N18.6 End stage renal disease; I50.9 Heart failure, unspecified; E11.22 Type 2 diabetes mellitus with diabetic chronic kidney disease; E11.21 Type 2 diabetes mellitus with diabetic nephropathy; I27.2 Other secondary pulmonary hypertension; D63.1 Anemia in chronic kidney disease; I35.0 Nonrheumatic aortic (valve) stenosis; E03.9 Hypothyroidism, unspecified; Z99.2 Dependence on renal dialysis; E11.42 Type 2 diabetes mellitus with diabetic polyneuropathy; J44.9 Chronic obstructive pulmonary disease, unspecified; D50.9 Iron deficiency anemia, unspecified; E55.9 Vitamin D deficiency, unspecified; G43.909 Migraine, unspecified, not intractable, without status migrainosus; K21.9 Gastro-esophageal reflux disease without esophagitis; I25.10 Atherosclerotic heart disease of native coronary artery without angina pectoris; J45.909 Unspecified asthma, uncomplicated; F32.9 Major depressive disorder, single episode, unspecified; Z87.891 Personal history of nicotine dependence; F29 Unspecified psychosis not due to a substance or known physiological condition; R49.0 Dysphonia; Z86.19 Personal history of other infectious and parasitic diseases; N25.81 Secondary hyperparathyroidism of renal origin
CPT/HCPCS: 70450; 71020; 71275; 80048; 80048 91; 80069; 82330; 82948; 83605; 84484; 85027; 87040; 87340; 87641; 93005; 94640; 94640 76; 94760; 94799; 99202; 99281; 99285; G0257; G0378; J0881; J1644; J1815; J2543; J3370; J7030; J7040; P9047

== ENCOUNTER 2016-08-04 07:54 | Emergency (ER) | payer OTHER ==
[~2016-08-04] VITALS: Ht 162.6 cm; Wt 86.8 kg
[~2016-08-04 07:54] MED LIST changes: +GLIPIZIDE ER2.5 MG PO; +SYNTHROID75 MCG PO
[2016-08-04 08:52] LABS: HEMATOCRIT 35.9 % (36.0-46.0); MCH 32.9 PG (29.0-34.0); MCHC 30.9 G/DL (30.0-36.0); MCV 106.5 FL (83-99); MEAN PLAT.VOLUME 10.2 uM^3 (9.5-12.4); PLATELET COUNT 125 K/uL (156-360); RBC DIS.WIDTH-CV 13.9 % (11.8-14.6); RBC DIS.WIDTH-SD 54.7 % (39-53); RED BLOOD COUNT 3.37 M/uL (3.80-5.20)
[2016-08-04 08:53] LABS: WHITE BLOOD COUNT 7.9 K/uL (4.1-10.2)
[2016-08-04 09:01] LABS: CHLORIDE 99 mEq/L (99-109); POTASSIUM 4.8 mEq/L (3.7-5.4); SODIUM 140 mEq/L (136-147)
[2016-08-04 09:02] LABS: MAGNESIUM 1.9 mg/dL (1.3-2.7)
[2016-08-04 09:04] LABS: GLUCOSE 250 mg/dL (70-99)
[2016-08-04 09:05] LABS: ANION GAP 14 MEQ/L (2-14)
[2016-08-04 09:06] LABS: TOTAL BILIRUBIN 0.8 mg/dL (0.0-1.0)
[2016-08-04 09:07] LABS: ALKALINE PHOSPHATASE 113 IU/L (3-129); GFR ESTIMATE (CALCULATED) 7 mL/min/
[2016-08-04 09:08] LABS: UREA NITROGEN (BUN) 55 mg/dL (9-23)
[2016-08-04 10:23] LABS: ADD MIUA? YES; BILIRUBIN NEGATIVE; BLOOD NEGATIVE; COLOR YELLOW ((YELLOW)); GLUCOSE (STRIP) 50; KETONES NEGATIVE; LEUKOCYTES MODERATE; NITRITE NEGATIVE; PROTEIN (STRIP) 30; SPECIFIC GRAVITY 1.012 (1.000-1.030); UROBILINOGEN 0.2 MG/DL (0.2-1.0)
[2016-08-04 10:30] LABS: BACTERIA NONE SEEN /HPF; EPITHELIAL CELLS RARE /HPF; HYALINE CASTS 0-5 /LPF; MUCUS TRACE /LPF; RED BLOOD CELLS 0-5 /HPF (0-5); UCUL ADDED? YES; WHITE BLOOD CELLS TNTC /HPF (0-5)
[2016-08-04] MEDS ORDERED: KEFLEX500 MG PO (11:09)
[2016-08-04] MEDS ORDERED: COLACE100 MG PO (11:09)
[2016-08-04] MEDS ORDERED: TRAMADOL HCL50 MG PO (11:39)
[2016-08-04 11:40] VITALS: BP 79/61
== END 2016-08-04 11:53 | disposition home or self-care (01) ==
LOC: EME 07:54
PROVIDERS: Nurse Practitioner Family
DX: N39.0 Urinary tract infection, site not specified (principal); E11.628 Type 2 diabetes mellitus with other skin complications; S90.411A Abrasion, right great toe, initial encounter; K59.00 Constipation, unspecified; M19.071 Primary osteoarthritis, right ankle and foot; Z99.2 Dependence on renal dialysis; E78.5 Hyperlipidemia, unspecified; K21.9 Gastro-esophageal reflux disease without esophagitis; I10 Essential (primary) hypertension; Z88.6 Allergy status to analgesic agent; Z88.2 Allergy status to sulfonamides; Z87.891 Personal history of nicotine dependence
CPT/HCPCS: 71020; 73630; 74020; 80053; 81003; 83735; 83880; 85027; 87086; 93005; 99281; 99285; J7040

== ENCOUNTER 2016-08-06 08:00 | Inpatient (IN) | payer OTHER ==
[2016-08-06] VITALS (11 sets, daily range): BP systolic 77–107; BP diastolic 41–61
[~2016-08-06] VITALS: Ht 162.6 cm; Wt 85.7 kg
[~2016-08-06 08:00] MED LIST changes: +COLACE100 MG PO; +KEFLEX500 MG PO
[2016-08-06 08:30] LABS: EOSINOPHIL (%) 0.8 % (0-5); EOSINOPHIL COUNT 0.1 K/uL (0-0.3); HEMATOCRIT 28.3 % (36.0-46.0); IMMATURE GRANULOCYTE (%) 0.7 % (0.0-0.7); IMMATURE GRANULOCYTE COUNT 0.1 K/uL; INSTRUMENT ABS NEUTROPHIL CT 7.4 K/uL; LYMPHOCYTE COUNT 0.8 K/uL (1.0-2.8); MCH 33.1 PG (29.0-34.0); MCHC 31.1 G/DL (30.0-36.0); MCV 106.4 FL (83-99); MEAN PLAT.VOLUME 10.5 uM^3 (9.5-12.4); MONOCYTE (%) 7.5 % (3-12); MONOCYTE COUNT 0.7 K/uL (0-0.8); NEUTROPHIL (%) 82.1 % (45-76); NEUTROPHIL COUNT 7.4 K/uL (1.8-6.4); PLATELET COUNT 98 K/uL (156-360); RBC DIS.WIDTH-CV 13.7 % (11.8-14.6); RBC DIS.WIDTH-SD 53.8 % (39-53)
[2016-08-06 08:30] LABS: ADD MIUA? YES; BILIRUBIN NEGATIVE; BLOOD SMALL; GLUCOSE (STRIP) NEGATIVE; KETONES NEGATIVE; LEUKOCYTES LARGE; NITRITE NEGATIVE; PROTEIN (STRIP) 100
[2016-08-06 08:31] LABS: RED BLOOD COUNT 2.66 M/uL (3.80-5.20)
[2016-08-06 08:32] LABS: COLOR YELLOW ((YELLOW))
[2016-08-06 08:39] LABS: CHLORIDE 100 mEq/L (99-109); POTASSIUM 4.7 mEq/L (3.7-5.4); SODIUM 135 mEq/L (136-147)
[2016-08-06 08:41] LABS: GLUCOSE 206 mg/dL (70-99)
[2016-08-06 08:42] LABS: ANION GAP 13 MEQ/L (2-14)
[2016-08-06 08:45] LABS: ALKALINE PHOSPHATASE 98 IU/L (3-129); GFR ESTIMATE (CALCULATED) 12 mL/min/; TOTAL BILIRUBIN 1.2 mg/dL (0.0-1.0)
[2016-08-06 08:46] LABS: UREA NITROGEN (BUN) 39 mg/dL (9-23)
[2016-08-06 09:16] LABS: UCUL ADDED? YES; WHITE BLOOD CELLS TNTC /HPF (0-5)
[2016-08-06 09:19] LABS: URINE COMMENT FIELD OBSCURED BY WB
[2016-08-06] MEDS ORDERED: CELEXA40 MG PO (13:28)
[2016-08-06] MEDS ORDERED: VENTOLIN HFA18 GM IH (13:29)
[2016-08-06] MEDS ORDERED: SINEQUAN100 MG PO (13:30)
[2016-08-06] MEDS ORDERED: ALLOPURINOL100 MG PO (13:30)
[2016-08-06] MEDS ORDERED: ZOCOR20 MG PO (13:31)
[2016-08-06] MEDS ORDERED: TYLENOL REGULA325 MG PO (13:32)
[2016-08-06] MEDS ORDERED: LEVO-T75 MCG PO (13:32)
[2016-08-06] MEDS ORDERED: ADVAIR 250/501 DISK IH (13:33)
[2016-08-06] MEDS ORDERED: CALMOSEPTINE O120 GM TP (13:33)
[2016-08-06] MEDS ORDERED: VITAMIN D31000 UNI2 PO (13:34)
[2016-08-06] MEDS ORDERED: SEROQUEL12.5 MG PO (13:34)
[2016-08-06] MEDS ORDERED: NEXIUM20 MG PO (13:35)
[2016-08-06] MEDS ORDERED: TRADJENTA5 MG PO (13:35)
[2016-08-06] MEDS ORDERED: SENNA PLUS TAB1 EACH PO (13:36)
[2016-08-06] MEDS ORDERED: DUONEB 2.5-0.5 M3 ML AEROSOL (13:36)
[2016-08-06] MEDS ORDERED: TUSSIN DM LIQU118 ML PO (13:37)
[2016-08-06] MEDS ORDERED: PROAMATINE5 MG PO (13:37)
[2016-08-06] MEDS ORDERED: TRAMADOL HCL50 MG PO (13:38)
[2016-08-06] MEDS ORDERED: NEURONTIN100 MG PO (13:38)
[2016-08-06] MEDS ORDERED: KEFLEX500 MG PO (13:41)
[2016-08-06 16:52] LABS: METH RESISTANT S AUREUS PCR POSITIVE (NEGATIVE)
[2016-08-06 17:05] LABS: PROBE CHECK PASS
[2016-08-06 21:38] LABS: POINT-OF-CARE METER ID UU13113803
[2016-08-07] VITALS (25 sets, daily range): BP systolic 77–115; BP diastolic 40–76
[2016-08-07 05:34] LABS: EOSINOPHIL (%) 4.1 % (0-5); EOSINOPHIL COUNT 0.3 K/uL (0-0.3); HEMATOCRIT 34.5 % (36.0-46.0); IMMATURE GRANULOCYTE (%) 0.8 % (0.0-0.7); IMMATURE GRANULOCYTE COUNT 0.1 K/uL; INSTRUMENT ABS NEUTROPHIL CT 6.6 K/uL; LYMPHOCYTE COUNT 0.4 K/uL (1.0-2.8); MCHC 30.7 G/DL (30.0-36.0); MCV 107.5 FL (83-99); MEAN PLAT.VOLUME 10.5 uM^3 (9.5-12.4); MONOCYTE (%) 2.4 % (3-12); MONOCYTE COUNT 0.2 K/uL (0-0.8); NEUTROPHIL (%) 87.5 % (45-76); NEUTROPHIL COUNT 6.6 K/uL (1.8-6.4); PLATELET COUNT 126 K/uL (156-360); RBC DIS.WIDTH-CV 13.8 % (11.8-14.6); RBC DIS.WIDTH-SD 54.7 % (39-53); WHITE BLOOD COUNT 7.6 K/uL (4.1-10.2)
[2016-08-07 06:16] LABS: RED BLOOD COUNT 3.21 M/uL (3.80-5.20)
[2016-08-07 06:44] LABS: ALKALINE PHOSPHATASE 122 IU/L (3-129); ANION GAP 11 MEQ/L (2-14); CHLORIDE 105 MEQ/L (99-109); GFR ESTIMATE (CALCULATED) 9 mL/min/; GLUCOSE 203 mg/dL (70-99); POTASSIUM 4.4 MEQ/L (3.7-5.4); SAMPLE HEMOLYSIS CHECK 0; SAMPLE ICTERIC CHECK 0; SAMPLE LIPEMIA CHECK 0; SODIUM 141 MEQ/L (136-147); TOTAL BILIRUBIN 1.3 MG/DL (0.0-1.0); UREA NITROGEN (BUN) 51 mg/dL (9-23)
[2016-08-07 08:45] LABS: POINT-OF-CARE METER ID UU13113803
[2016-08-07 09:47] LABS: AHBS INDEX 0.08; HEPATITIS B SURFACE ANTIBODY Nonreactive
[2016-08-07 11:15] LABS: HBSG INDEX 1121.84
[2016-08-07 13:27] LABS: POINT-OF-CARE METER ID UU14174217
[2016-08-07 17:50] LABS: POINT-OF-CARE METER ID UU13113731; POINT-OF-CARE USER ID 606021424
[2016-08-07 22:05] LABS: POINT-OF-CARE METER ID UU14162636
[2016-08-08] VITALS (19 sets, daily range): BP systolic 77–116; BP diastolic 46–71
[2016-08-08 08:14] LABS: EOSINOPHIL (%) 6.5 % (0-5); EOSINOPHIL COUNT 0.4 K/uL (0-0.3); HEMATOCRIT 35.9 % (36.0-46.0); IMMATURE GRANULOCYTE (%) 1.4 % (0.0-0.7); IMMATURE GRANULOCYTE COUNT 0.1 K/uL; INSTRUMENT ABS NEUTROPHIL CT 3.9 K/uL; LYMPHOCYTE COUNT 1.1 K/uL (1.0-2.8); MCH 32.7 PG (29.0-34.0); MCHC 30.9 G/DL (30.0-36.0); MCV 105.9 FL (83-99); MEAN PLAT.VOLUME 10.4 uM^3 (9.5-12.4); MONOCYTE COUNT 0.4 K/uL (0-0.8); NEUTROPHIL (%) 66.8 % (45-76); NEUTROPHIL COUNT 3.9 K/uL (1.8-6.4); PLATELET COUNT 139 K/uL (156-360); RBC DIS.WIDTH-CV 13.5 % (11.8-14.6); RBC DIS.WIDTH-SD 53.1 % (39-53); RED BLOOD COUNT 3.39 M/uL (3.80-5.20); WHITE BLOOD COUNT 5.9 K/uL (4.1-10.2)
[2016-08-08 17:55] LABS: POINT-OF-CARE METER ID UU14162636
[2016-08-09 07:17] VITALS: BP 116/53
[2016-08-09 08:38] LABS: EOSINOPHIL (%) 6.6 % (0-5); EOSINOPHIL COUNT 0.3 K/uL (0-0.3); HEMATOCRIT 33.6 % (36.0-46.0); IMMATURE GRANULOCYTE (%) 1.6 % (0.0-0.7); IMMATURE GRANULOCYTE COUNT 0.1 K/uL; INSTRUMENT ABS NEUTROPHIL CT 3.2 K/uL; LYMPHOCYTE COUNT 1.1 K/uL (1.0-2.8); MCH 33.4 PG (29.0-34.0); MCHC 31.5 G/DL (30.0-36.0); MEAN PLAT.VOLUME 10.4 uM^3 (9.5-12.4); MONOCYTE (%) 7.4 % (3-12); MONOCYTE COUNT 0.4 K/uL (0-0.8); NEUTROPHIL (%) 63.1 % (45-76); NEUTROPHIL COUNT 3.2 K/uL (1.8-6.4); PLATELET COUNT 154 K/uL (156-360); RBC DIS.WIDTH-CV 13.5 % (11.8-14.6); RBC DIS.WIDTH-SD 53.3 % (39-53); RED BLOOD COUNT 3.17 M/uL (3.80-5.20); WHITE BLOOD COUNT 5.1 K/uL (4.1-10.2)
[2016-08-09 08:50] LABS: ANION GAP 10 MEQ/L (2-14); CHLORIDE 104 MEQ/L (99-109); SAMPLE HEMOLYSIS CHECK 0; SAMPLE ICTERIC CHECK 0; SAMPLE LIPEMIA CHECK 0; SODIUM 138 MEQ/L (136-147)
[2016-08-09 09:02] LABS: GFR ESTIMATE (CALCULATED) 12 mL/min/; GLUCOSE 286 mg/dL (70-99); UREA NITROGEN (BUN) 37 mg/dL (9-23)
[2016-08-09 13:12] VITALS: BP 122/70
[2016-08-09 16:15] VITALS: BP 120/74
[2016-08-09 23:39] VITALS: BP 139/64
[2016-08-10 06:03] LABS: POINT-OF-CARE METER ID UU13113725
[2016-08-10 07:12] VITALS: BP 120/60
[2016-08-10 16:28] LABS: POINT-OF-CARE METER ID UU13113725
[2016-08-10 16:41] VITALS: BP 110/56
[2016-08-10 21:58] LABS: POINT-OF-CARE METER ID UU13113725
[2016-08-11 00:31] VITALS: BP 126/69
[2016-08-11 09:16] LABS: EOSINOPHIL COUNT 0.3 K/uL (0-0.3); HEMATOCRIT 35.4 % (36.0-46.0); IMMATURE GRANULOCYTE COUNT 0.3 K/uL; INSTRUMENT ABS NEUTROPHIL CT 3.8 K/uL; LYMPHOCYTE COUNT 1.5 K/uL (1.0-2.8); MCH 32.9 PG (29.0-34.0); MCHC 31.1 G/DL (30.0-36.0); MONOCYTE (%) 6.8 % (3-12); MONOCYTE COUNT 0.4 K/uL (0-0.8); NEUTROPHIL (%) 59.4 % (45-76); NEUTROPHIL COUNT 3.8 K/uL (1.8-6.4); PLATELET COUNT 172 K/uL (156-360); RBC DIS.WIDTH-CV 13.8 % (11.8-14.6); RBC DIS.WIDTH-SD 53.9 % (39-53); RED BLOOD COUNT 3.34 M/uL (3.80-5.20); WHITE BLOOD COUNT 6.5 K/uL (4.1-10.2)
[2016-08-11 09:37] LABS: ANION GAP 10 MEQ/L (2-14); CHLORIDE 103 MEQ/L (99-109); POTASSIUM 4.1 MEQ/L (3.7-5.4); SAMPLE HEMOLYSIS CHECK 0; SAMPLE ICTERIC CHECK 0; SAMPLE LIPEMIA CHECK 0; SODIUM 138 MEQ/L (136-147)
[2016-08-11 09:43] LABS: GFR ESTIMATE (CALCULATED) 14 mL/min/; GLUCOSE 254 mg/dL (70-99); UREA NITROGEN (BUN) 39 mg/dL (9-23)
[2016-08-11 15:39] VITALS: BP 111/54
[2016-08-11 23:19] VITALS: BP 131/70
[2016-08-12 06:23] LABS: POINT-OF-CARE METER ID UU13113725
[2016-08-12 06:55] VITALS: BP 125/62
[2016-08-12 11:37] LABS: POINT-OF-CARE METER ID UU13113725
[2016-08-12] MEDS ORDERED: MIDODRINE HCL5 MG PO (14:12)
[2016-08-12] MEDS ORDERED: SEROQUEL100 MG PO (14:13)
[2016-08-12] MEDS ORDERED: NOVOLOG PE100 UNITS/ SC (14:16)
[2016-08-12] MEDS ORDERED: LANTUS 10100 UNITS/ SC (14:17)
[2016-08-12] MEDS ORDERED: CEFTIN500 MG PO (14:22)
== END 2016-08-12 15:59 | DRG 871 ==
LOC: EME 08:00 → EDOF 13:45 → 4WEST 13:45 → 5EAST 08-08 20:52
PROVIDERS: Emergency Medicine; Internal Medicine; Internal Medicine Critical Care Medicine; Internal Medicine Nephrology; Obstetrics & Gynecology
PROC: 5A1D60Z (ICD-10-PCS; principal; 2016-08-07)
DX: A41.9 Sepsis, unspecified organism (principal); R65.21 Severe sepsis with septic shock; N39.0 Urinary tract infection, site not specified; B96.1 Klebsiella pneumoniae [K. pneumoniae] as the cause of diseases classified elsewhere; B96.4 Proteus (mirabilis) (morganii) as the cause of diseases classified elsewhere; I13.2 Hypertensive heart and chronic kidney disease with heart failure and with stage 5 chronic kidney disease, or end stage renal disease; E11.22 Type 2 diabetes mellitus with diabetic chronic kidney disease; N18.6 End stage renal disease; E11.21 Type 2 diabetes mellitus with diabetic nephropathy; I50.9 Heart failure, unspecified; I27.2 Other secondary pulmonary hypertension; Z99.2 Dependence on renal dialysis; E11.42 Type 2 diabetes mellitus with diabetic polyneuropathy; I08.2 Rheumatic disorders of both aortic and tricuspid valves; D63.1 Anemia in chronic kidney disease; D50.9 Iron deficiency anemia, unspecified; B18.1 Chronic viral hepatitis B without delta-agent; E03.9 Hypothyroidism, unspecified; I25.10 Atherosclerotic heart disease of native coronary artery without angina pectoris; G89.29 Other chronic pain; M54.9 Dorsalgia, unspecified; K21.9 Gastro-esophageal reflux disease without esophagitis; E11.65 Type 2 diabetes mellitus with hyperglycemia; N25.81 Secondary hyperparathyroidism of renal origin; R09.02 Hypoxemia; R41.82 Altered mental status, unspecified; M25.552 Pain in left hip; M25.562 Pain in left knee; M25.561 Pain in right knee; G43.909 Migraine, unspecified, not intractable, without status migrainosus; F31.9 Bipolar disorder, unspecified; E66.9 Obesity, unspecified; Z68.32 Body mass index [BMI] 32.0-32.9, adult; Z22.322 Carrier or suspected carrier of Methicillin resistant Staphylococcus aureus; Z87.891 Personal history of nicotine dependence
CPT/HCPCS: 71010; 71020; 73630; 74020; 80053; 80069; 81003; 82533 91; 82607; 82746; 82948; 83605; 83735; 83880; 85025; 85027; 86706; 87040; 87077; 87086; 87186; 87340; 87641; 93005; 93970; 94640; 94640 76; 94799; 97530 GO; 97530 GP; 99202; 99281; 99285; C1751; J0696; J1644; J1815; J2543; J3370; J7030; J7040; J7050

== ENCOUNTER 2017-02-04 02:01 | Inpatient (IN) | payer OTHER ==
[~2017-02-04] VITALS: Ht 157.5 cm; Wt 90.9 kg
[~2017-02-04 02:01] MED LIST changes: +CEFTIN500 MG PO; +LANTUS 10100 UNITS/ SC; +LEVO-T75 MCG PO; +NOVOLOG PE100 UNITS/ SC; +PROAMATINE5 MG PO; +SEROQUEL100 MG PO; +VITAMIN D31000 UNI2 PO; +ZOCOR20 MG PO
[2017-02-04 02:40] LABS: HEMATOCRIT 34.9 % (36.0-46.0); MCH 33.2 PG (29.0-34.0); MCHC 32.1 G/DL (30.0-36.0); MCV 103.6 FL (83-99); MEAN PLAT.VOLUME 10.7 uM^3 (9.5-12.4); PLATELET COUNT 123 K/uL (156-360); RBC DIS.WIDTH-CV 13.8 % (11.8-14.6); RBC DIS.WIDTH-SD 52.5 % (39-53); RED BLOOD COUNT 3.37 M/uL (3.80-5.20); WHITE BLOOD COUNT 5.5 K/uL (4.1-10.2)
[2017-02-04 02:45] LABS: INTER. NORMALIZED RATIO 1.1
[2017-02-04 02:47] LABS: PTT 30.7 SEC (25-37)
[2017-02-04 02:49] LABS: CHLORIDE 98 mEq/L (99-109); POTASSIUM 4.8 mEq/L (3.7-5.4); SODIUM 137 mEq/L (136-147)
[2017-02-04 02:52] LABS: GLUCOSE 200 mg/dL (70-99)
[2017-02-04 02:53] LABS: ANION GAP 11 MEQ/L (2-14)
[2017-02-04 02:54] LABS: TOTAL BILIRUBIN 0.8 mg/dL (0.0-1.0)
[2017-02-04 02:55] LABS: ALKALINE PHOSPHATASE 157 IU/L (3-129); GFR ESTIMATE (CALCULATED) 9 mL/min/
[2017-02-04 02:56] LABS: UREA NITROGEN (BUN) 53 mg/dL (9-23)
[2017-02-04 02:59] LABS: LIPASE 40 U/L (1.0-51.0)
[2017-02-04 03:00] LABS: TROP-I INTERPRETATION NEGATIVE; TROPONIN-I < 0.01 ng/mL (0.0-0.30)
[2017-02-04 06:13] LABS: ADD MIUA? NO; BILIRUBIN NEGATIVE; BLOOD NEGATIVE; COLOR YELLOW ((YELLOW)); GLUCOSE (STRIP) NEGATIVE; KETONES NEGATIVE; LEUKOCYTES NEGATIVE; NITRITE NEGATIVE; PROTEIN (STRIP) 30; SPECIFIC GRAVITY 1.012 (1.000-1.030); UCUL ADDED? NO; UROBILINOGEN 0.2 MG/DL (0.2-1.0)
[2017-02-04] MEDS ORDERED: PROAMATINE5 MG PO (08:41)
[2017-02-04] MEDS ORDERED: ATIVAN0.5 MG PO (08:54)
[2017-02-04] MEDS ORDERED: RENVELA800 MG PO ×2 (08:55)
[2017-02-04] MEDS ORDERED: PRILOSEC20 MG PO (08:56)
[2017-02-04] MEDS ORDERED: CILOXAN 0.1 APPLICAT RIGHT EYE (08:57)
[2017-02-04] MEDS ORDERED: SYNTHROID75 MCG PO (09:14)
[2017-02-04] MEDS ORDERED: LIPITOR10 MG PO (09:15)
[2017-02-04] MEDS ORDERED: SEROQUEL12.5 MG PO (09:15)
[2017-02-04 11:45] VITALS: BP 112/58
[2017-02-04 14:16] LABS: METH RESISTANT S AUREUS PCR POSITIVE (NEGATIVE)
[2017-02-04 14:20] LABS: PROBE CHECK PASS
[2017-02-04 20:36] VITALS: BP 118/76
[2017-02-04 23:47] VITALS: BP 128/76
[2017-02-05 04:14] VITALS: BP 112/59
[2017-02-05 10:54] LABS: HPCA INDEX 0.18
[2017-02-05 10:55] LABS: AHBS INDEX 0.37; HEPATITIS B SURFACE ANTIBODY Nonreactive
[2017-02-05 11:21] LABS: ANTI-HEPATITIS B CORE (TOTAL) REACTIVE; HBCT INDEX 12.58; HBSG INDEX 1366.92
[2017-02-05 12:18] VITALS: BP 139/72
[2017-02-05 13:13] LABS: ANTI-HEPATITIS B CORE (IGM) Nonreactive; HBC IgM INDEX 0.73
[2017-02-05 15:47] VITALS: BP 138/74
[2017-02-05 19:31] VITALS: BP 88/53
[2017-02-05 23:54] VITALS: BP 108/67
[2017-02-06 04:51] VITALS: BP 111/68
[2017-02-06 08:58] LABS: EOSINOPHIL (%) 4.1 % (0-5); EOSINOPHIL COUNT 0.2 K/uL (0-0.3); HEMATOCRIT 32.6 % (36.0-46.0); IMMATURE GRANULOCYTE (%) 0.9 % (0.0-0.7); INSTRUMENT ABS NEUTROPHIL CT 2.5 K/uL; LYMPHOCYTE COUNT 1.2 K/uL (1.0-2.8); MCHC 31.6 G/DL (30.0-36.0); MCV 104.5 FL (83-99); MEAN PLAT.VOLUME 10.8 uM^3 (9.5-12.4); MONOCYTE (%) 9.9 % (3-12); MONOCYTE COUNT 0.4 K/uL (0-0.8); NEUTROPHIL COUNT 2.5 K/uL (1.8-6.4); PLATELET COUNT 122 K/uL (156-360); RBC DIS.WIDTH-CV 14.1 % (11.8-14.6); RBC DIS.WIDTH-SD 53.3 % (39-53); RED BLOOD COUNT 3.12 M/uL (3.80-5.20); WHITE BLOOD COUNT 4.4 K/uL (4.1-10.2)
[2017-02-06 09:12] LABS: ANION GAP 8 MEQ/L (2-14); CHLORIDE 100 MEQ/L (99-109); GFR ESTIMATE (CALCULATED) 11 mL/min/; GLUCOSE 347 mg/dL (70-99); POTASSIUM 4.2 MEQ/L (3.7-5.4); SAMPLE HEMOLYSIS CHECK 0; SAMPLE ICTERIC CHECK 0; SAMPLE LIPEMIA CHECK 0; SODIUM 137 MEQ/L (136-147); UREA NITROGEN (BUN) 50 mg/dL (9-23)
[2017-02-06] MEDS ORDERED: MIDODRINE HCL5 MG PO (10:07)
[2017-02-06 15:40] VITALS: BP 115/72
== END 2017-02-06 15:48 | disposition home or self-care (01) | DRG 312 ==
LOC: EME → EDBD 02:01 → EME 02:01 → EDOF 06:24 → 3EAST 06:24 → ENRESERV 06:28 → 3EAST 11:21
PROVIDERS: Emergency Medicine; Internal Medicine; Internal Medicine Nephrology
PROC: 5A1D70Z Performance of Urinary Filtration, Intermittent, Less than 6 Hours Per Day (ICD-10-PCS; principal; 2017-02-04)
DX: I95.1 Orthostatic hypotension (principal); S00.93XA Contusion of unspecified part of head, initial encounter; W18.30XA Fall on same level, unspecified, initial encounter; Y92.009 Unspecified place in unspecified non-institutional (private) residence as the place of occurrence of the external cause; I12.0 Hypertensive chronic kidney disease with stage 5 chronic kidney disease or end stage renal disease; E11.22 Type 2 diabetes mellitus with diabetic chronic kidney disease; N18.6 End stage renal disease; Z99.2 Dependence on renal dialysis; R42 Dizziness and giddiness; R53.1 Weakness; D63.1 Anemia in chronic kidney disease; E11.21 Type 2 diabetes mellitus with diabetic nephropathy; E55.9 Vitamin D deficiency, unspecified; E11.42 Type 2 diabetes mellitus with diabetic polyneuropathy; N25.81 Secondary hyperparathyroidism of renal origin; B18.1 Chronic viral hepatitis B without delta-agent; E03.9 Hypothyroidism, unspecified; E78.5 Hyperlipidemia, unspecified; F31.9 Bipolar disorder, unspecified; F43.10 Post-traumatic stress disorder, unspecified; H91.90 Unspecified hearing loss, unspecified ear; I25.10 Atherosclerotic heart disease of native coronary artery without angina pectoris; I35.0 Nonrheumatic aortic (valve) stenosis; J43.9 Emphysema, unspecified; K21.9 Gastro-esophageal reflux disease without esophagitis; G43.909 Migraine, unspecified, not intractable, without status migrainosus; M19.90 Unspecified osteoarthritis, unspecified site; M48.00 Spinal stenosis, site unspecified; F41.9 Anxiety disorder, unspecified; M10.9 Gout, unspecified; E66.01 Morbid (severe) obesity due to excess calories; Z68.37 Body mass index [BMI] 37.0-37.9, adult; Z87.440 Personal history of urinary (tract) infections; Z87.891 Personal history of nicotine dependence
CPT/HCPCS: 36415; 70450; 71010; 80053; 80061; 80069; 81003; 83036; 83605; 83690; 84443; 84484; 84550; 85025; 85027; 85610; 85730; 86704; 86705; 86706; 86803; 87040; 87340; 87641; 93005; 94640; 94640 76; 99202; 99281; 99285; C1755; J1644; J7030; J7040

== ENCOUNTER 2017-02-24 21:56 | Inpatient (IN) | payer OTHER ==
[~2017-02-24] VITALS: Ht 157.5 cm; Wt 90.4 kg
[~2017-02-24 21:56] MED LIST changes: +ATIVAN0.5 MG PO; +CILOXAN 0.1 APPLICAT RIGHT EYE; +LIPITOR10 MG PO; +RENVELA800 MG PO
[2017-02-24 22:51] LABS: BASOPHIL (%) 0.4 % (0-1); EOSINOPHIL (%) 3.7 % (0-5); EOSINOPHIL COUNT 0.2 K/uL (0-0.3); HEMATOCRIT 34.7 % (36.0-46.0); HEMOGLOBIN 11.2 G/DL (11.9-15.5); IMMATURE GRANULOCYTE (%) 2.1 % (0.0-0.7); LYMPHOCYTE (%) 29.1 % (15-42); LYMPHOCYTE COUNT 1.7 K/uL (1.0-2.8); MCH 33.6 PG (29.0-34.0); MCHC 32.3 G/DL (30.0-36.0); MCV 104.2 FL (83-99); MONOCYTE (%) 12.6 % (3-12); MONOCYTE COUNT 0.7 K/uL (0-0.8); NEUTROPHIL (%) 52.1 % (45-76); PLATELET COUNT 122 K/uL (156-360); RBC DIS.WIDTH-CV 14.7 % (11.8-14.6); RBC DIS.WIDTH-SD 55.8 % (39-53); RED BLOOD COUNT 3.33 M/uL (3.80-5.20); WHITE BLOOD COUNT 5.7 K/uL (4.1-10.2)
[2017-02-24 22:56] LABS: INTER. NORMALIZED RATIO 1.1
[2017-02-24 22:59] LABS: CHLORIDE 98 mEq/L (99-109); POTASSIUM 4.6 mEq/L (3.7-5.4); PTT 27.9 SEC (25-37); SODIUM 138 mEq/L (136-147)
[2017-02-24 23:01] LABS: GLUCOSE 212 mg/dL (70-99)
[2017-02-24 23:05] LABS: CREATININE 4.5 mg/dL (0.6-1.3); GFR ESTIMATE (CALCULATED) 10 mL/min/
[2017-02-24 23:06] LABS: UREA NITROGEN (BUN) 38 mg/dL (9-23)
[2017-02-24 23:11] LABS: TROP-I INTERPRETATION NEGATIVE; TROPONIN-I < 0.01 ng/mL (0.0-0.30)
[2017-02-25 09:36] LABS: HEMATOCRIT 33.7 % (36.0-46.0); HEMOGLOBIN 10.8 G/DL (11.9-15.5); MCH 34.1 PG (29.0-34.0); MCV 106.3 FL (83-99); PLATELET COUNT 102 K/uL (156-360); RBC DIS.WIDTH-CV 14.8 % (11.8-14.6); RBC DIS.WIDTH-SD 57.8 % (39-53); RED BLOOD COUNT 3.17 M/uL (3.80-5.20); WHITE BLOOD COUNT 5.5 K/uL (4.1-10.2)
[2017-02-25 09:52] LABS: ALBUMIN 2.9 G/DL (3.2-4.8); CHLORIDE 100 MEQ/L (99-109); CREATININE 4.3 MG/DL (0.6-1.3); GFR ESTIMATE (CALCULATED) 11 mL/min/; GLUCOSE 160 mg/dL (70-99); PHOSPHORUS 3.6 mg/dL (2.5-4.9); POTASSIUM 4.7 MEQ/L (3.7-5.4); SODIUM 138 MEQ/L (136-147); UREA NITROGEN (BUN) 38 mg/dL (9-23)
[2017-02-25] MEDS ORDERED: DOLOTRANZ 2.5%1 EACH TP (12:30)
[2017-02-25] MEDS ORDERED: BIOTENE1000 ML MM (12:32)
[2017-02-25 14:42] VITALS: BP 89/52
[2017-02-26 00:30] VITALS: BP 102/60
[2017-02-26 04:56] VITALS: BP 99/52
[2017-02-26 07:42] VITALS: BP 84/48
[2017-02-26 11:48] VITALS: BP 90/55
[2017-02-26 16:04] VITALS: BP 95/53
[2017-02-26 23:24] VITALS: BP 100/48
[2017-02-27 07:49] VITALS: BP 102/57
[2017-02-27 09:06] LABS: HEMATOCRIT 35.2 % (36.0-46.0); MCH 32.8 PG (29.0-34.0); MCHC 31.3 G/DL (30.0-36.0); MCV 105.1 FL (83-99); PLATELET COUNT 123 K/uL (156-360); RBC DIS.WIDTH-CV 14.9 % (11.8-14.6); RBC DIS.WIDTH-SD 57.5 % (39-53); RED BLOOD COUNT 3.35 M/uL (3.80-5.20); WHITE BLOOD COUNT 4.7 K/uL (4.1-10.2)
[2017-02-27 09:42] LABS: ALBUMIN 2.4 G/DL (3.2-4.8); ALKALINE PHOSPHATASE 126 IU/L (3-129); ALT (GPT) 25 IU/L (3-49); AST (GOT) 25 IU/L (2-34); CHLORIDE 110 MEQ/L (99-109); GLUCOSE 206 mg/dL (70-99); SODIUM 140 MEQ/L (136-147); TOTAL BILIRUBIN 0.5 MG/DL (0.0-1.0); TOTAL PROTEIN 5.4 G/DL (6.4-8.3); UREA NITROGEN (BUN) 31 mg/dL (9-23)
[2017-02-27 09:43] LABS: CREATININE 3.3 MG/DL (0.6-1.3); GFR ESTIMATE (CALCULATED) 15 mL/min/; PHOSPHORUS 2.2 mg/dL (2.5-4.9); POTASSIUM 3.6 MEQ/L (3.7-5.4)
[2017-02-27 17:18] VITALS: BP 102/62
[2017-02-27 18:24] VITALS: BP 109/64
[2017-02-28 07:10] VITALS: BP 124/61
[2017-02-28 16:19] VITALS: BP 126/58
[2017-02-28 22:56] VITALS: BP 113/58
[2017-03-01 08:47] LABS: BASOPHIL (%) 0.7 % (0-1); EOSINOPHIL COUNT 0.3 K/uL (0-0.3); HEMATOCRIT 39.2 % (36.0-46.0); HEMOGLOBIN 12.6 G/DL (11.9-15.5); IMMATURE GRANULOCYTE (%) 1.9 % (0.0-0.7); LYMPHOCYTE (%) 26.5 % (15-42); LYMPHOCYTE COUNT 1.4 K/uL (1.0-2.8); MCH 33.3 PG (29.0-34.0); MCHC 32.1 G/DL (30.0-36.0); MCV 103.7 FL (83-99); MONOCYTE (%) 8.4 % (3-12); MONOCYTE COUNT 0.5 K/uL (0-0.8); NEUTROPHIL (%) 57.5 % (45-76); NEUTROPHIL COUNT 3.1 K/uL (1.8-6.4); PLATELET COUNT 138 K/uL (156-360); RBC DIS.WIDTH-CV 15.2 % (11.8-14.6); RBC DIS.WIDTH-SD 56.3 % (39-53); RED BLOOD COUNT 3.78 M/uL (3.80-5.20); WHITE BLOOD COUNT 5.4 K/uL (4.1-10.2)
[2017-03-01 09:13] VITALS: BP 109/60
[2017-03-01 09:13] LABS: ALBUMIN 3.1 G/DL (3.2-4.8); CHLORIDE 102 MEQ/L (99-109); GLUCOSE 183 mg/dL (70-99); SODIUM 136 MEQ/L (136-147); UREA NITROGEN (BUN) 31 mg/dL (9-23)
[2017-03-01 09:56] LABS: CREATININE 3.9 MG/DL (0.6-1.3); GFR ESTIMATE (CALCULATED) 12 mL/min/; POTASSIUM 4.8 MEQ/L (3.7-5.4)
[2017-03-01] MEDS ORDERED: CEFTIN500 MG PO (14:28)
[2017-03-01 17:01] VITALS: BP 95/54
== END 2017-03-01 18:45 | disposition home or self-care (01) | DRG 602 ==
LOC: EME → EDBD 21:56 → EME 21:56 → EDOF 02-25 02:30 → 5EAST 02-25 02:30 → ENRESERV 02-25 02:53 → 5EAST 02-25 14:12
PROVIDERS: Emergency Medicine; Family Medicine; Internal Medicine
PROC: 5A1D70Z Performance of Urinary Filtration, Intermittent, Less than 6 Hours Per Day (ICD-10-PCS; principal; 2017-02-25)
DX: L03.116 Cellulitis of left lower limb (principal); E86.0 Dehydration; E11.21 Type 2 diabetes mellitus with diabetic nephropathy; E11.22 Type 2 diabetes mellitus with diabetic chronic kidney disease; I12.0 Hypertensive chronic kidney disease with stage 5 chronic kidney disease or end stage renal disease; N18.6 End stage renal disease; N25.81 Secondary hyperparathyroidism of renal origin; D63.1 Anemia in chronic kidney disease; M10.9 Gout, unspecified; K21.9 Gastro-esophageal reflux disease without esophagitis; I25.10 Atherosclerotic heart disease of native coronary artery without angina pectoris; E78.5 Hyperlipidemia, unspecified; E03.9 Hypothyroidism, unspecified; G43.909 Migraine, unspecified, not intractable, without status migrainosus; F41.9 Anxiety disorder, unspecified; J44.9 Chronic obstructive pulmonary disease, unspecified; B18.1 Chronic viral hepatitis B without delta-agent; D50.9 Iron deficiency anemia, unspecified; I95.89 Other hypotension; F31.9 Bipolar disorder, unspecified; E55.9 Vitamin D deficiency, unspecified; E11.42 Type 2 diabetes mellitus with diabetic polyneuropathy; I35.0 Nonrheumatic aortic (valve) stenosis; F03.90 Unspecified dementia, unspecified severity, without behavioral disturbance, psychotic disturbance, mood disturbance, and anxiety; Z88.6 Allergy status to analgesic agent; Z88.2 Allergy status to sulfonamides; Z87.891 Personal history of nicotine dependence; Z99.2 Dependence on renal dialysis
CPT/HCPCS: 70450; 73564; 80048; 80053; 80069; 80202; 81003; 82948; 84100; 84484; 85025; 85027; 85610; 85730; 87040; 87086; 93005; 93971; 99202; 99281; 99285; A6214; C1755; J0696; J0881; J1644; J1756; J3370; J7030; J7050

== ENCOUNTER 2017-04-07 06:19 | Inpatient (IN) | payer OTHER ==
[~2017-04-07] VITALS: Ht 157.5 cm; Wt 92.8 kg
[~2017-04-07 06:19] MED LIST changes: +BIOTENE1000 ML MM; +DOLOTRANZ 2.5%1 EACH TP
[2017-04-07 07:03] LABS: HEMATOCRIT 36.4 % (36.0-46.0); MCH 33.9 PG (29.0-34.0); MCV 102.8 FL (83-99); PLATELET COUNT 109 K/uL (156-360); RBC DIS.WIDTH-CV 13.5 % (11.8-14.6); RED BLOOD COUNT 3.54 M/uL (3.80-5.20); WHITE BLOOD COUNT 4.9 K/uL (4.1-10.2)
[2017-04-07 07:25] LABS: ALBUMIN 3.2 g/dL (3.2-4.8); CHLORIDE 101 mEq/L (99-109); POTASSIUM 4.8 mEq/L (3.7-5.4); SODIUM 141 mEq/L (136-147)
[2017-04-07 07:27] LABS: GLUCOSE 158 mg/dL (70-99); TOTAL PROTEIN 6.4 g/dL (6.4-8.3)
[2017-04-07 07:29] LABS: TOTAL BILIRUBIN 0.6 mg/dL (0.0-1.0)
[2017-04-07 07:30] LABS: SERUM ETHYL ALCOHOL < 10 mg/dL
[2017-04-07 07:31] LABS: ALKALINE PHOSPHATASE 166 IU/L (3-129); CREATININE 3.5 mg/dL (0.6-1.3); GFR ESTIMATE (CALCULATED) 14 mL/min/
[2017-04-07 07:32] LABS: AST (GOT) 42 IU/L (2-34); UREA NITROGEN (BUN) 36 mg/dL (9-23)
[2017-04-07 07:34] LABS: ALT (GPT) 51 IU/L (3-49)
[2017-04-07 07:41] LABS: TROP-I INTERPRETATION NEGATIVE; TROPONIN-I < 0.01 ng/mL (0.0-0.30)
[2017-04-07 09:47] LABS: TROP-I INTERPRETATION NEGATIVE; TROPONIN-I < 0.01 ng/mL (0.0-0.30)
[2017-04-07 17:05] VITALS: BP 112/53
[2017-04-07 19:45] VITALS: BP 118/67
[2017-04-08 00:47] VITALS: BP 88/57
[2017-04-08 03:46] VITALS: BP 102/57
[2017-04-08 09:05] VITALS: BP 90/56
[2017-04-08 13:37] LABS: BASOPHIL (%) 0.4 % (0-1); EOSINOPHIL (%) 3.8 % (0-5); EOSINOPHIL COUNT 0.2 K/uL (0-0.3); HEMOGLOBIN 11.7 G/DL (11.9-15.5); IMMATURE GRANULOCYTE (%) 0.4 % (0.0-0.7); LYMPHOCYTE (%) 32.1 % (15-42); LYMPHOCYTE COUNT 1.7 K/uL (1.0-2.8); MCH 33.9 PG (29.0-34.0); MCHC 32.5 G/DL (30.0-36.0); MCV 104.3 FL (83-99); MONOCYTE (%) 8.5 % (3-12); MONOCYTE COUNT 0.5 K/uL (0-0.8); NEUTROPHIL (%) 54.8 % (45-76); NEUTROPHIL COUNT 2.9 K/uL (1.8-6.4); PLATELET COUNT 107 K/uL (156-360); RBC DIS.WIDTH-CV 13.8 % (11.8-14.6); RBC DIS.WIDTH-SD 53.1 % (39-53); RED BLOOD COUNT 3.45 M/uL (3.80-5.20); WHITE BLOOD COUNT 5.3 K/uL (4.1-10.2)
[2017-04-08 13:47] LABS: ALBUMIN 3.1 G/DL (3.2-4.8); CHLORIDE 103 MEQ/L (99-109); SODIUM 137 MEQ/L (136-147)
[2017-04-08 13:52] LABS: GFR ESTIMATE (CALCULATED) 12 mL/min/; PHOSPHORUS 2.6 mg/dL (2.5-4.9)
[2017-04-08 13:55] LABS: GLUCOSE 262 mg/dL (70-99); UREA NITROGEN (BUN) 56 mg/dL (9-23)
[2017-04-08 17:16] VITALS: BP 82/60
[2017-04-08 19:42] VITALS: BP 81/42
[2017-04-08 23:55] VITALS: BP 82/46
[2017-04-09 03:50] VITALS: BP 127/64
[2017-04-09 08:05] VITALS: BP 102/52
[2017-04-09 16:00] VITALS: BP 108/54
[2017-04-09 19:18] VITALS: BP 97/56
[2017-04-09 23:25] VITALS: BP 97/56
[2017-04-10 03:10] VITALS: BP 96/52
[2017-04-10 07:28] VITALS: BP 98/54
[2017-04-10 10:15] LABS: BASOPHIL (%) 0.5 % (0-1); EOSINOPHIL (%) 5.7 % (0-5); EOSINOPHIL COUNT 0.3 K/uL (0-0.3); HEMATOCRIT 34.4 % (36.0-46.0); HEMOGLOBIN 11.2 G/DL (11.9-15.5); IMMATURE GRANULOCYTE (%) 0.7 % (0.0-0.7); LYMPHOCYTE (%) 10.1 % (15-42); LYMPHOCYTE COUNT 0.4 K/uL (1.0-2.8); MCH 33.9 PG (29.0-34.0); MCHC 32.6 G/DL (30.0-36.0); MCV 104.2 FL (83-99); MONOCYTE (%) 5.5 % (3-12); MONOCYTE COUNT 0.2 K/uL (0-0.8); NEUTROPHIL (%) 77.5 % (45-76); NEUTROPHIL COUNT 3.4 K/uL (1.8-6.4); PLATELET COUNT 105 K/uL (156-360); RBC DIS.WIDTH-SD 53.1 % (39-53); WHITE BLOOD COUNT 4.4 K/uL (4.1-10.2)
[2017-04-10 10:38] LABS: ALBUMIN 3.3 G/DL (3.2-4.8); CHLORIDE 99 MEQ/L (99-109); CREATININE 4.6 MG/DL (0.6-1.3); GFR ESTIMATE (CALCULATED) 10 mL/min/; GLUCOSE 388 mg/dL (70-99); PHOSPHORUS 4.2 mg/dL (2.5-4.9); POTASSIUM 4.4 MEQ/L (3.7-5.4); SODIUM 137 MEQ/L (136-147); UREA NITROGEN (BUN) 47 mg/dL (9-23)
[2017-04-10] MEDS ORDERED: CEPHALEXIN500 MG PO (12:20)
== END 2017-04-10 16:27 | disposition home or self-care (01) | DRG 314 ==
LOC: EME → EDBD 06:19 → EME 06:19 → EDOF 12:33 → ENRESERV 13:02 → EDOF 15:26 → 2EAST 15:40 → EDOF 15:40 → ENRESERV 15:50 → 2EAST 16:36
PROVIDERS: Internal Medicine; Nurse Practitioner Family
PROC: 5A1D70Z Performance of Urinary Filtration, Intermittent, Less than 6 Hours Per Day (ICD-10-PCS; principal; 2017-04-08)
DX: I95.9 Hypotension, unspecified (principal); S93.402A Sprain of unspecified ligament of left ankle, initial encounter; S91.115A Laceration without foreign body of left lesser toe(s) without damage to nail, initial encounter; W01.0XXA Fall on same level from slipping, tripping and stumbling without subsequent striking against object, initial encounter; S80.211A Abrasion, right knee, initial encounter; S80.212A Abrasion, left knee, initial encounter; N18.6 End stage renal disease; E11.22 Type 2 diabetes mellitus with diabetic chronic kidney disease; E11.42 Type 2 diabetes mellitus with diabetic polyneuropathy; N25.81 Secondary hyperparathyroidism of renal origin; I35.0 Nonrheumatic aortic (valve) stenosis; I25.10 Atherosclerotic heart disease of native coronary artery without angina pectoris; E78.5 Hyperlipidemia, unspecified; D63.1 Anemia in chronic kidney disease; B18.1 Chronic viral hepatitis B without delta-agent; E03.9 Hypothyroidism, unspecified; J43.9 Emphysema, unspecified; K21.9 Gastro-esophageal reflux disease without esophagitis; E55.9 Vitamin D deficiency, unspecified; F31.9 Bipolar disorder, unspecified; F41.9 Anxiety disorder, unspecified; M10.9 Gout, unspecified; R29.6 Repeated falls; Y92.099 Unspecified place in other non-institutional residence as the place of occurrence of the external cause; Z91.81 History of falling; Z99.2 Dependence on renal dialysis; Z87.891 Personal history of nicotine dependence
CPT/HCPCS: 70450; 73564; 73610; 73660; 80053; 80069; 81003; 82948; 83605; 84484; 85025; 85027; 93005; 93306; 94640; 94640 76; 99202; 99281; 99285; G0480; J1644; J1815; J7030; P9047

== ENCOUNTER 2017-04-16 11:16 | Inpatient (IN) | payer OTHER ==
[~2017-04-16] VITALS: Ht 162.6 cm; Wt 90.3 kg
[~2017-04-16 11:16] MED LIST changes: +CEPHALEXIN500 MG PO
[2017-04-16 11:57] LABS: HEMATOCRIT 34.1 % (36.0-46.0); HEMOGLOBIN 11.2 G/DL (11.9-15.5); MCH 33.8 PG (29.0-34.0); MCHC 32.8 G/DL (30.0-36.0); PLATELET COUNT 89 K/uL (156-360); RBC DIS.WIDTH-CV 13.6 % (11.8-14.6); RBC DIS.WIDTH-SD 51.9 % (39-53); RED BLOOD COUNT 3.31 M/uL (3.80-5.20); WHITE BLOOD COUNT 4.3 K/uL (4.1-10.2)
[2017-04-16 12:01] LABS: CARBON DIOXIDE (BICARBONATE) 37.7 MEQ/L (20-31)
[2017-04-16 12:08] LABS: CHLORIDE 96 mEq/L (99-109); POTASSIUM 4.2 mEq/L (3.7-5.4); SODIUM 138 mEq/L (136-147)
[2017-04-16 12:09] LABS: GLUCOSE 278 mg/dL (70-99)
[2017-04-16 12:13] LABS: CREATININE 4.5 mg/dL (0.6-1.3); GFR ESTIMATE (CALCULATED) 10 mL/min/
[2017-04-16 12:14] LABS: UREA NITROGEN (BUN) 40 mg/dL (9-23)
[2017-04-16 12:18] LABS: TROP-I INTERPRETATION NEGATIVE; TROPONIN-I 0.02 ng/mL (0.0-0.30)
[2017-04-16] MEDS ORDERED: PROBIOTIC1 EAC1 PO (15:34)
[2017-04-16] MEDS ORDERED: DUONEB 2.5-0.5 M3 ML AEROSOL (15:34)
[2017-04-16 18:03] VITALS: BP 80/54
[2017-04-16 19:40] VITALS: BP 89/60
[2017-04-17 00:07] VITALS: BP 102/54
[2017-04-17 03:22] VITALS: BP 100/50
[2017-04-17 06:56] LABS: GLUCOSE 486 mg/dL (70-99)
[2017-04-17 08:00] VITALS: BP 82/64
[2017-04-17 10:05] LABS: BASOPHIL (%) 0 % (0-1); EOSINOPHIL (%) 0 % (0-5); HEMATOCRIT 34.5 % (36.0-46.0); HEMOGLOBIN 11.3 G/DL (11.9-15.5); IMMATURE GRANULOCYTE (%) 1.4 % (0.0-0.7); LYMPHOCYTE (%) 12.9 % (15-42); LYMPHOCYTE COUNT 0.4 K/uL (1.0-2.8); MCH 33.4 PG (29.0-34.0); MCHC 32.8 G/DL (30.0-36.0); MCV 102.1 FL (83-99); MONOCYTE (%) 1.8 % (3-12); MONOCYTE COUNT 0.1 K/uL (0-0.8); NEUTROPHIL (%) 83.9 % (45-76); NEUTROPHIL COUNT 2.3 K/uL (1.8-6.4); PLATELET COUNT 93 K/uL (156-360); RBC DIS.WIDTH-CV 13.5 % (11.8-14.6); RBC DIS.WIDTH-SD 50.4 % (39-53); RED BLOOD COUNT 3.38 M/uL (3.80-5.20); WHITE BLOOD COUNT 2.8 K/uL (4.1-10.2)
[2017-04-17 10:08] LABS: CHLORIDE 93 MEQ/L (99-109); POTASSIUM 3.9 MEQ/L (3.7-5.4); SODIUM 133 MEQ/L (136-147)
[2017-04-17 10:14] LABS: CREATININE 4.6 MG/DL (0.6-1.3); GFR ESTIMATE (CALCULATED) 10 mL/min/; UREA NITROGEN (BUN) 51 mg/dL (9-23)
[2017-04-17 10:30] LABS: GLUCOSE 447 mg/dL (70-99)
[2017-04-17 16:06] VITALS: BP 90/64
[2017-04-17 19:08] VITALS: BP 88/52
[2017-04-17 23:20] VITALS: BP 89/50
[2017-04-18 07:10] VITALS: BP 118/62
[2017-04-18 13:25] LABS: GLUCOSE 514 mg/dL (70-99)
[2017-04-18 17:14] VITALS: BP 101/68
[2017-04-19 00:11] VITALS: BP 110/65
[2017-04-19 07:15] VITALS: BP 90/54
[2017-04-19 07:43] LABS: ALBUMIN 3.2 G/DL (3.2-4.8); CHLORIDE 95 MEQ/L (99-109); GLUCOSE 293 mg/dL (70-99); PHOSPHORUS 4.2 mg/dL (2.5-4.9); SODIUM 132 MEQ/L (136-147); UREA NITROGEN (BUN) 73 mg/dL (9-23)
[2017-04-19 07:44] LABS: CREATININE 5.4 MG/DL (0.6-1.3); GFR ESTIMATE (CALCULATED) 8 mL/min/; POTASSIUM 4.9 MEQ/L (3.7-5.4)
[2017-04-19 16:00] VITALS: BP 94/54
[2017-04-19 23:30] VITALS: BP 105/60
[2017-04-20 06:30] LABS: BASOPHIL (%) 0.2 % (0-1); EOSINOPHIL (%) 0 % (0-5); HEMATOCRIT 32.8 % (36.0-46.0); LYMPHOCYTE (%) 15.6 % (15-42); LYMPHOCYTE COUNT 0.9 K/uL (1.0-2.8); MCH 33.3 PG (29.0-34.0); MCHC 33.5 G/DL (30.0-36.0); MCV 99.4 FL (83-99); MONOCYTE (%) 10.3 % (3-12); MONOCYTE COUNT 0.6 K/uL (0-0.8); NEUTROPHIL (%) 71.9 % (45-76); NEUTROPHIL COUNT 4.3 K/uL (1.8-6.4); PLATELET COUNT 114 K/uL (156-360); RBC DIS.WIDTH-CV 13.3 % (11.8-14.6); RBC DIS.WIDTH-SD 48.2 % (39-53); WHITE BLOOD COUNT 5.9 K/uL (4.1-10.2)
[2017-04-20 06:58] LABS: ALBUMIN 3.4 G/DL (3.2-4.8); CHLORIDE 95 MEQ/L (99-109); CREATININE 6.1 MG/DL (0.6-1.3); GFR ESTIMATE (CALCULATED) 7 mL/min/; GLUCOSE 148 mg/dL (70-99); PHOSPHORUS 3.8 mg/dL (2.5-4.9); POTASSIUM 4.7 MEQ/L (3.7-5.4); SODIUM 131 MEQ/L (136-147); UREA NITROGEN (BUN) 97 mg/dL (9-23)
[2017-04-20 11:39] VITALS: BP 116/62
[2017-04-20 16:04] VITALS: BP 93/50
[2017-04-20 19:25] VITALS: BP 100/56
[2017-04-21 00:16] VITALS: BP 105/59
[2017-04-21 07:17] VITALS: BP 92/40
[2017-04-21 11:45] VITALS: BP 90/48
[2017-04-21 15:33] VITALS: BP 142/82
[2017-04-22 00:03] VITALS: BP 99/54
[2017-04-22 06:42] LABS: HEMATOCRIT 33.6 % (36.0-46.0); HEMOGLOBIN 11.1 G/DL (11.9-15.5); MCH 33.7 PG (29.0-34.0); MCV 102.1 FL (83-99); PLATELET COUNT 93 K/uL (156-360); RBC DIS.WIDTH-CV 13.8 % (11.8-14.6); RBC DIS.WIDTH-SD 51.7 % (39-53); RED BLOOD COUNT 3.29 M/uL (3.80-5.20); WHITE BLOOD COUNT 4.6 K/uL (4.1-10.2)
[2017-04-22 07:06] LABS: ALBUMIN 3.4 G/DL (3.2-4.8); CHLORIDE 98 MEQ/L (99-109); CREATININE 5.6 MG/DL (0.6-1.3); GFR ESTIMATE (CALCULATED) 8 mL/min/; GLUCOSE 193 mg/dL (70-99); PHOSPHORUS 4.2 mg/dL (2.5-4.9); POTASSIUM 4.9 MEQ/L (3.7-5.4); SODIUM 136 MEQ/L (136-147); UREA NITROGEN (BUN) 81 mg/dL (9-23)
[2017-04-22 07:11] LABS: ABS NEUTROPHIL COUNT 3.1; ATYPICAL LYMPHOCYTE 0.9 %; EOSINOPHIL ABS CT 0; LYMPHOCYTES 21.9 % (15.0-45.0); MONOCYTES 8.8 % (0-9.0); PLAT.SUFFICIENCY DECREASED; SEG.NEUTROPHILS 68.4 % (46.0-76.0)
[2017-04-22 07:15] VITALS: BP 112/56
[2017-04-22] MEDS ORDERED: AMOX TR-K CLV1 EAC3 PO (12:01)
[2017-04-22] MEDS ORDERED: ESCITALOPRAM OX10 MG PO (12:03)
[2017-04-22] MEDS ORDERED: NOVOLOG 10100 UNITS/ SC (12:03)
[2017-04-22] MEDS ORDERED: LEVEMIR100 UNIT/2 SC (12:04)
[2017-04-22] MEDS ORDERED: PREDNISONE10 MG PO (12:10)
== END 2017-04-22 14:14 | DRG 193 ==
LOC: EME 11:16 → 2EAST 15:50 → EDOF 15:50 → ENRESERV 16:08 → EDOF 17:32 → 2EAST 17:37
PROVIDERS: Emergency Medicine; Internal Medicine; Internal Medicine Nephrology
PROC: 5A1D70Z Performance of Urinary Filtration, Intermittent, Less than 6 Hours Per Day (ICD-10-PCS; principal; 2017-04-17)
DX: J10.1 Influenza due to other identified influenza virus with other respiratory manifestations (principal); J45.901 Unspecified asthma with (acute) exacerbation; I95.89 Other hypotension; N18.6 End stage renal disease; E11.22 Type 2 diabetes mellitus with diabetic chronic kidney disease; E11.21 Type 2 diabetes mellitus with diabetic nephropathy; E11.42 Type 2 diabetes mellitus with diabetic polyneuropathy; I27.20 Pulmonary hypertension, unspecified; N25.81 Secondary hyperparathyroidism of renal origin; E86.9 Volume depletion, unspecified; I08.2 Rheumatic disorders of both aortic and tricuspid valves; J43.9 Emphysema, unspecified; B18.1 Chronic viral hepatitis B without delta-agent; D63.1 Anemia in chronic kidney disease; I25.10 Atherosclerotic heart disease of native coronary artery without angina pectoris; R09.02 Hypoxemia; E78.5 Hyperlipidemia, unspecified; E03.9 Hypothyroidism, unspecified; K21.9 Gastro-esophageal reflux disease without esophagitis; E55.9 Vitamin D deficiency, unspecified; F31.9 Bipolar disorder, unspecified; F41.9 Anxiety disorder, unspecified; Z99.2 Dependence on renal dialysis; Z79.4 Long term (current) use of insulin; Z87.440 Personal history of urinary (tract) infections; Z87.891 Personal history of nicotine dependence
CPT/HCPCS: 36415; 71045; 71046; 71250; 80048; 80069; 82533 91; 82803; 82948; 83605; 83880; 84484; 84520; 84999; 85025; 85027; 87040; 87502; 93005; 94640; 94640 76; 94799; 99202; 99281; 99285; J0456; J1100; J1644; J1815; J2920; J7512